=== PATIENT | female | born 1945 | race Caucasian/White ===

== ENCOUNTER → 2021-06-14 12:18 | Outpatient (CLI) | payer MEDICARE, OTHER, SELFPAY ==
--- NOTE | ~2021-06-14 | MM_ITS ---
EXAMINATION: MM screening florin BI w mike HISTORY: Screening mammogram TECHNIQUE: Craniocaudal and mediolateral oblique 3-D tomosynthesis images were obtained and synthetic 2-D images were generated. CAD analysis was submitted and interpreted. COMPARISON: 05/16/2019, 04/01/2018, 03/30/2017 bilateral digital screening mammogram examinations BREAST PARENCHYMAL COMPOSITION: There are scattered areas of fibroglandular density. FINDINGS: There is no evidence of suspicious mass, calcification, or architectural distortion to sugg est malignancy in either breast. There has been no suspicious interval change. IMPRESSION: 1. No mammographic evidence of malignancy. 2. Recommend routine screening mammography in one year. BI-RADS Category 1: Negative Reviewed, dictated and finalized at location A.
== END ==
PROVIDERS: PCP Internal Medicine; Visit Provider Obstetrics & Gynecology Gynecology
DX: Z12.31 Encounter for screening mammogram for malignant neoplasm of breast (principal)
CPT/HCPCS: 77063; 77067

== ENCOUNTER 2021-08-17 07:48 | Outpatient (CLI) | payer MEDICARE, OTHER, SELFPAY ==
--- NOTE | 2021-08-31 12:54 | WPDSLEEPSTUD ---
Sleep Study Date of Study: 08/17/21 <Kamille Ayala, DO - Last Filed: 08/31/21 14:29> Ordering Provider: Jose JaraMD <Kamille Ayala, DO - Last Filed: 08/31/21 14:29> Interpreting Physician: Kaimlle Ayala DO <Kamille Ayala, DO - Last Filed: 08/31/21 14:29> Sleep Study Type: Split Polysomnogram <Kamille Ayala DO - Last Filed: 08/31/21 14:29> Height: 1.6 m <Kamille Ayala DO - Last Filed: 08/31/21 14:29> Weight: 107.955 kg <Kamille Ayala DO - Last Filed: 08/31/21 14:29> Body Mass Index: 42.1 <Kamille Ayala DO - Last Filed: 08/31/21 14:29> Neck Circumference (inches): 14 <Kamille Ayala DO - Last Filed: 08/31/21 14:29> Young Harris: 10 <Kamille Ayala DO - Last Filed: 08/31/21 14:29> Reason for Sleep Study The patient has known ROBBIE but has not been using her CPAP. She does have daytime sleepiness that is affecting her daily activities. <Kamille Ayala, DO - Last Filed: 08/31/21 14:29> Sleep History The patient is a 76-year-old female with coronary artery disease and ROBBIE that has a split study ordered by her primary care physician due to daytime somnolence. The patient states that she stopped using the CPAP a while ago. The patient had a split study done on July 18, 2010 where she was titrated to CPAP of 4 cm H2O. She had a Pap titration on August 23, 2010 where she was titrated to CPAP 10 cm H2O. The patient states that she never awakens from sleep short of breath. She never awakens from sleep with GERD symptoms or coughing. She rarely snores and never loud enough to where others complain. She really has trouble sleeping when she was denies waking up gasping for breath throughout the night. She denies any heart palpitations or out tonight. She frequently falls asleep during the day and often when she does not want to. She rarely falls asleep while driving. He denies sleep paralysis, cataplexy and hypnagogic / hypnopompic hallucinations. The patient rarely has nightmares. She often has thoughts racing through her mind. She denies feeling sad or depressed and is rarely anxious. She denies kicking throughout the night. She denies crawling and aching feelings in her legs as well as leg pain throughout the night. She denies grinding her teeth throughout the night waking up with morning jaw pain. She denies pain bothered by pain during the day and being awakened by pain throughout the night. She denies feeling stiff in the morning when she wakes up. She frequently wakes up with sore achy muscles. The patient denies consuming any caffeinated beverages 2 hours prior to bedtime. She does not engage in any physical exercise before bedtime. She does not read or watch television prior to bedtime. She will take a short naps in the afternoon or evening and does feel refreshed afterwards. She denies tobacco, alcohol and recreational drug use. She does not drink any caffeinated beverages throughout the day. She currently goes to bed at 11:00 p.m. on both weekdays and weekends. She said it will take her 1 hour at the longus to fall asleep. She wakes up 3 times throughout the night either to urinae home or to take medicine for headache. It takes her about 15 minutes to fall back asleep. She typically gets 5-6 hours of sleep per night. She wakes up at 7:00 a.m. on both weekdays and weekends. She does not stay in bed after waking up in the morning. She currently lives with her . <Kamille Ayala DO - Last Filed: 08/31/21 14:29> [facility] Past Medical History Medical History: Medical History ROBBIE (obstructive sleep apnea) <Kamille Ayala DO - Last Filed: 08/31/21 14:29> Surgical History Surgical History: Surgical History (Updated 08/31/21 @ 13:12 by Kamille Ayala, DO) History of hysterectomy Hx of cholecy
[2021-08-31 13:04] VITALS: BMI 42.1
== END 2021-08-18 07:48 | disposition home or self-care (01) ==
LOC: ANHCSM 07:53
PROVIDERS: PCP Internal Medicine; Visit Provider Internal Medicine
DX: G47.33 Obstructive sleep apnea (adult) (pediatric) (principal)
CPT/HCPCS: 95811

== ENCOUNTER 2022-05-30 14:20 | Outpatient (CLI) | payer MEDICARE, OTHER, SELFPAY ==
--- NOTE | ~2022-05-30 | US_ITS ---
EXAMINATION:US venous doppler LE LT INDICATION:Left lower extremity edema TECHNIQUE: Multiple grayscale, color flow and Doppler images of the left lower extremity deep venous systems were obtained and reviewed. COMPARISON:No prior studies for comparison. FINDINGS: The common femoral, superficial femoral and popliteal veins demonstrate normal respiratory variation, augmentation and compressibility. Color flow is also seen within the posterior tibial, pe roneal, greater saphenous and profunda veins. IMPRESSION: 1: No lower extremity deep venous thrombosis. Reviewed, dictated and finalized at location A.
== END 2022-05-30 14:21 | disposition home or self-care (01) ==
PROVIDERS: PCP Internal Medicine; Visit Provider Internal Medicine
DX: R60.0 Localized edema (principal)
CPT/HCPCS: 93971

== ENCOUNTER 2022-08-31 09:02 | Outpatient (CLI) | payer MEDICARE, OTHER, SELFPAY ==
--- NOTE | ~2022-08-31 | DEXA_ITS ---
Bone Density Report Name: CATERINA RAMÍREZ Age: 77 Sex: Female Ethnicity: White Date of : 1945 Indication: postmenopausal; screening for osteoporosis; height loss; prior fracture; hysterectomy; Referring Provider: NICOLETTE, GERRY Study: Bone densitometry was performed. Exam Date: August 31, 2022 Accession number: [id number] Bone Density: Region BMD T-score Z-score Classification AP Spine(L1-L4) 1.113 0.6 3.2 Normal Femoral Neck (Left) 0.731 -1.1 1.2 Osteopenia Total Hip (Left) 0.796 -1.2 0.8 Osteopenia Femoral Neck (Right) 0.586 -2.4 -0.1 Osteopenia Total Hip (Right) 0.800 -1.2 0.8 Osteopenia Total Hip Mean 0.798 -1.2 0.8 Osteopenia World Health Organization criteria for BMD impression classify patients as: Normal (T-score at or above -1.0), Osteopenia (T-score between -1.0 and -2.5), or Osteoporosis (T-score at or below -2.5). 10-year Fracture Risk(1): Major Osteoporotic Fracture 21% Hip Fracture 5.7% Reported Risk Factors: [place] (), Neck BMD=0.586, BMI=43.9, previous fracture (1) FRAX(R) Version 3.08. Fracture probability calculated for an untreated patient. Fracture probability may be lower if the patient has received treatment. Clinical Information Provided by Patient: Has had a low trauma fracture Has used the following medications: Vitamin D, Calcium Has the following medical conditions: Hysterectomy Patient maximum height was 64 Menopause Age: 49 No regular weight bearing exercise Onset of menses at age 13 Number of children 3 Impression: The patient has low bone mass, based on the Right Femoral Neck T-score. The patient has an estimated ten-year risk of hip fracture of 5.7% and an estimated ten-year risk of major fracture of 21%, based on the WHO FRAX algorithm. The patient has risk factors, including: previous fracture. Discussion: BONE DENSITY IS LOW AT ONE OR MORE SKELETAL SITES. THE PATIENT'S BMD AND CLINICAL RISK FACTORS CONTRIBUTE TO THIS PATIENT'S HIGH RISK OF FRACTURE. This patient's lowest T-score is low at one or more skeletal sites. It meets the World Health Organization's (WHO) criteria for ?low bone mass? (T-score between -1.0 and -2.5). The patient's 10-year risk of hip fracture and 10 year risk of a major osteoporotic fracture as calculated by FRAX exceeds the threshold where pharmacological therapy is recommended by the National Osteoporosis Foundation (NOF). However, all treatment decisions require clinical judgment and consideration of individual patient factors, including patient preferences, comorbidities, previous drug use, risk factors not captured in the FRAX model (e.g., frailty, falls, vitamin D deficiency, increased bone turnover, interval significant decline in bone density) and possible under or overestimation of fract
--- NOTE | ~2022-08-31 | MM_ITS ---
EXAMINATION: MM screening florin BI w mike HISTORY: Screening TECHNIQUE: Craniocaudal and mediolateral oblique 3-D tomosynthesis images were obtained and synthetic 2-D images were generated. CAD analysis was submitted and interpreted. COMPARISON: Comparison to multiple prior studies sequentially, with oldest reviewed study dated 12/2015. BREAST PARENCHYMAL COMPOSITION: Breast composed of scattered areas of fibroglandular density FINDINGS: There is no evidence of suspicious mass, calcification, or architectural distortion to sugg est malignancy in either breast. There has been no suspicious interval change. IMPRESSION: 1. No mammographic evidence of malignancy. 2. Recommend routine screening mammography in one year. BI-RADS Category 1: Negative Reviewed, dictated and finalized at location A.
== END 2022-08-31 09:03 | disposition home or self-care (01) ==
LOC: ANHIMG 09:03
PROVIDERS: PCP Internal Medicine; Visit Provider Nurse Practitioner
DX: Z12.31 Encounter for screening mammogram for malignant neoplasm of breast (principal); Z78.0 Asymptomatic menopausal state; M85.851 Other specified disorders of bone density and structure, right thigh; M85.852 Other specified disorders of bone density and structure, left thigh
CPT/HCPCS: 77063; 77067; 77080

== ENCOUNTER 2023-06-04 03:56 | Day surgery (SDC) | payer MEDICARE, OTHER, SELFPAY ==
[2023-05-31 08:38] VITALS: BMI 43.1
[2023-06-04 10:41] VITALS: BP 131/67; PULSE 56; RESP 17; TEMP 36; O2SAT 98; BMI 42.8
--- NOTE | 2023-06-04 10:48 | WPDANESEPPF ---
Anes - Initial Pre Proc Eval Procedure: Operation Date: 06/04/23 13:15 Proposed Procedures p Esophagogastroduodenoscopy - Carlton Noguera MD Date/Time: 06/04/23 10:48 Surgeon: Carlton Noguera MD Pre Op Diagnosis: GERD Patient Data Age: 77 Gender: F Height: 1.57 m Weight: 106.2 kg Last Vital Signs Temp 96.8 F L 06/04/23 10:41 Pulse 56 L 06/04/23 10:41 Resp 17 06/04/23 10:41 BP 131/67 06/04/23 10:41 Pulse Ox 98 06/04/23 10:41 O2 Del Method Room Air 06/04/23 10:41 Allergies Allergy/AdvReac Type Severity Reaction Status Date / Time codeine Allergy Mild Hives Verified 06/04/23 10:39 Home Medications Medication Instructions Recorded Confirmed Type aspirin 81 mg tablet,delayed 81 mg PO DAILY 11/01/21 05/31/23 History release atorvastatin 20 mg tablet 20 mg PO DAILY 11/01/21 05/31/23 History calcium carbonate 600 mg calcium 600 mg PO DAILY 11/01/21 06/04/23 History (1,500 mg) tablet (Calcium) ergocalciferol (vitamin D2) 1,250 1,250 mcg PO MONTHLY 11/01/21 06/04/23 History mcg (50,000 unit) capsule metoprolol succinate 25 mg capsule 25 mg PO DAILY 11/01/21 06/04/23 History sprinkle, ext. release 24 hr milk thistle 175 mg tablet 175 mg PO BID 11/01/21 06/04/23 History multivitamin with iron (Daily 1 tablet PO DAILY 11/01/21 06/04/23 History Multiple Vitamins with Iron tablet) omeprazole 40 mg capsule,delayed 40 mg PO DAILY 11/01/21 06/04/23 History release furosemide 20 mg tablet 20 mg PO QAM 05/29/23 06/04/23 History oxybutynin chloride 5 mg tablet 5 mg PO DAILY 05/29/23 06/04/23 History Patient hx anesthesia problems: none Family hx anesthesia problems: none Results Review: All pre-operative results and documents have been reviewed as part of the pre-operative evaluation. [facility] Past Medical History Medical History Coronary artery disease GERD (gastroesophageal reflux disease) HLD (hyperlipidemia) HTN (hypertension) Hyperparathyroidism ROBBIE (obstructive sleep apnea) Surgical History Surgical History History of hysterectomy Hx of cholecystectomy Family History Family History Father Diabetes mellitus Mother Family history of multiple sclerosis Other Family history of congenital heart disease Family history of malignant neoplasm Social History Social History Social History: Caffeine-rarely Years smoked: 4 Smoking status: Former smoker Tobacco type: cigarettes Smoking end date: 11/19/1967 Alcohol intake: never Substance use: never Substance use type: does not use Lack of Transportation: No Lack of Food: Never True Current Housing: I Have Housing Concerned About Future Housing: No Difficulty Paying Gas/Electric Bills: No Difficulty Paying for Meds: No Currently Unemployed: No Education: High School Diploma/GED Difficulty w/ Childcare or Family Care: No Living arrangements: with family Spiritual care concerns: No Anes - Eval Final PreProcedure Day of Procedure 06/04/23 10:48 Patient weight: morbidly obese Heart: regular rate and rhythm Lungs: clear to auscultation Neurological: alert and oriented Last oral intake: >/= 8 hours ASA classification: III Emergent: no Anesthetic plan: proceed Anesthesia type and monitoring: general GIVS and standard monitoring Results Review: All pre-operative results and documents have been reviewed as part of the pre-operative evaluation. Informed Consent: The patient's anesthetic plan and its attendant risks and benefits were discussed with the patient/family/POA. Questions were solicited and answers provided to the satisfaction of the patient/family/POA.
[2023-06-04] MEDS: LACTATED RINGERS 1,000 ML 150 ML IV CONT (10:49)
--- NOTE | 2023-06-04 11:12 | PM.HPGS ---
History of Present Illness History of Present Illness Consent: Risks, benefits, and alternatives have been discussed and questions answered. Patient agrees to proceed with procedure. Chief complaint: GERD Narrative: Gill Kim is a 77 year old female Who is chronically treated with omeprazole for acid reflux and now is been bothered by a sore throat for the past month. It is fairly constant and it is uncomfortable for her to swallow. She denies dysphagia for solid food. There has been no weight loss. She denies abdominal pain. She recently saw an ENT physician who did not find anything significant. He had recommended that she have endoscopy. Review of Systems Review of Systems: All systems reviewed & are unremarkable except as noted in HPI and below PMFSH Past Medical History Medical History (Updated 06/04/23 @ 11:13 by Carlton Noguera MD) Coronary artery disease GERD (gastroesophageal reflux disease) HLD (hyperlipidemia) HTN (hypertension) Hyperparathyroidism ROBBIE (obstructive sleep apnea) Surgical History Surgical History History of hysterectomy Hx of cholecystectomy Family History Family History Father Diabetes mellitus Mother Family history of multiple sclerosis Other Family history of congenital heart disease Family history of malignant neoplasm Social History Social History Social History: Caffeine-rarely Years smoked: 4 Smoking status: Former smoker Tobacco type: cigarettes Smoking end date: 11/19/1967 Alcohol intake: never Substance use: never Substance use type: does not use Lack of Transportation: No Lack of Food: Never True Current Housing: I Have Housing Concerned About Future Housing: No Difficulty Paying Gas/Electric Bills: No Difficulty Paying for Meds: No Currently Unemployed: No Education: High School Diploma/GED Difficulty w/ Childcare or Family Care: No Living arrangements: with family Spiritual care concerns: No Meds Home Medications and Allergies Home Medications Medication Instructions Recorded Confirmed Type aspirin 81 mg tablet,delayed 81 mg PO DAILY 11/01/21 05/31/23 History release atorvastatin 20 mg tablet 20 mg PO DAILY 11/01/21 05/31/23 History calcium carbonate 600 mg calcium 600 mg PO DAILY 11/01/21 06/04/23 History (1,500 mg) tablet (Calcium) ergocalciferol (vitamin D2) 1,250 1,250 mcg PO MONTHLY 11/01/21 06/04/23 History mcg (50,000 unit) capsule metoprolol succinate 25 mg capsule 25 mg PO DAILY 11/01/21 06/04/23 History sprinkle, ext. release 24 hr milk thistle 175 mg tablet 175 mg PO BID 11/01/21 06/04/23 History multivitamin with iron (Daily 1 tablet PO DAILY 11/01/21 06/04/23 History Multiple Vitamins with Iron tablet) omeprazole 40 mg capsule,delayed 40 mg PO DAILY 11/01/21 06/04/23 History release furosemide 20 mg tablet 20 mg PO QAM 05/29/23 06/04/23 History oxybutynin chloride 5 mg tablet 5 mg PO DAILY 05/29/23 06/04/23 History Allergies Allergy/AdvReac Type Severity Reaction Status Date / Time codeine Allergy Mild Hives Verified 06/04/23 10:39 Vital Signs Vital Signs - 24 hr 06/04/23 10:41 Temperature 36.0 C L Pulse Rate 56 L Respiratory Rate 17 Blood Pressure 131/67 Pulse Oximetry 98 Oxygen Delivery Room Air Exam Const: General: alert Orientation/consciousness: patient oriented x3 Resp: Auscultation: clear to auscultation bilaterally Cardio: Rhythm: regular rhythm GI: GI Palp: Yes Soft to palpation and No Tenderness to palpation present (GI) Neuro: General: patient oriented x3 Assessment and Plan Assessment and plan (1) GERD (gastroesophageal reflux disease): Code(s): K21.9 - Gastro-esophageal reflux disease without esophagitis Status: Acute Assessment and Plan:
[2023-06-04 11:35] VITALS: BP 112/57; PULSE 56; RESP 22; O2SAT 95
[2023-06-04 11:45] VITALS: BP 98/63; PULSE 54; RESP 21; O2SAT 99
[2023-06-04 11:55] VITALS: BP 134/71; PULSE 50; RESP 20; O2SAT 98
== END 2023-06-04 12:03 | disposition home or self-care (01) ==
PROVIDERS: PCP Internal Medicine; Visit Provider Internal Medicine Gastroenterology
PROC: 0DJ08ZZ Inspection of Upper Intestinal Tract, Via Natural or Artificial Opening Endoscopic (ICD-10-PCS; CPT 43235; principal; 2023-06-04 13:15)
DX: K21.9 Gastro-esophageal reflux disease without esophagitis (principal); K31.7 Polyp of stomach and duodenum; I25.10 Atherosclerotic heart disease of native coronary artery without angina pectoris; E78.5 Hyperlipidemia, unspecified; I10 Essential (primary) hypertension; Z87.891 Personal history of nicotine dependence
CPT/HCPCS: 43239; 88305; J2704; J7120

== ENCOUNTER 2023-09-26 11:00 | Emergency (ER) | payer MEDICARE, OTHER, SELFPAY ==
--- NOTE | ~2023-09-26 | XR_ITS ---
EXAMINATION: XR chest 1V portable DATE: 09/26/2023 17:55 INDICATION: Near syncope. TECHNIQUE: A single frontal view of the chest was obtained. COMPARISON: None. FINDINGS: There is no pneumonia, pleural effusion, or pneumothorax. The heart size is normal. IMPRESSION: 1. No acute cardiopulmonary disease. Reviewed, dictated and finalized at location E. [employer]ION [employer]ATE
[2023-09-26 11:41] VITALS: BP 133/60; PULSE 62; RESP 16; TEMP 36.6; O2SAT 97
--- NOTE | 2023-09-26 11:47 | ECG_ITS ---
Measurements Intervals [place] Rate: 60 P: 6 [place]: 206 QRS: -18 QRSD: 107 T: 1 QT: 413 QTc: 416 Interpretive Statements SINUS RHYTHM BORDERLINE AV CONDUCTION DELAY INCOMPLETE RIGHT BUNDLE BRANCH BLOCK DELAYED PRECORDIAL R/S TRANSITION LOW QRS VOLTAGE IN PRECORDIAL LEADS BORDERLINE T WAVE ABNORMALITY- ANTEROLAT/INF LEADS BASELINE ARTIFACT- II, III, AVR, AVL, AVF, V6 BORDERLINE ECG NO PREVIOUS ECG AVAILABLE FOR COMPARISON Electronically Signed On 09-26-2023 11:58:55 CEMENT MIXER by William Hilton D.O.
[2023-09-26 13:09] LABS: Basophils Percent Auto 0.3 % (0.2-1.2); Eosinophils Percent Auto 0.3 % (0-4.4); Hematocrit 41.9 % (37.0-47.0); Hemoglobin 13.3 g/dL (12.0-15.0); Immature Granulocyte Absolute 0.08 K/mm3 (0.00-0.031); Immature Granulocyte Percent A 0.8 % (0-0.5); Lymphocytes Absolute Auto 0.84 K/mm3 (0.9-3.2); Lymphocytes Percent Auto 8.5 % (18.3-44.2); Mean Corpuscular HGB Conc 31.7 g/dl (32-36); Mean Corpuscular Hemoglobin 28.1 pg (26-34); Mean Corpuscular Volume 88.6 fl (80-100); Mean Platelet Volume 10.3 fl (7.4-10.4); Monocytes Absolute Auto 0.5 K/mm3 (0.1-0.6); Monocytes Percent Auto 5.2 % (2.6-8.5); Neutrophils Absolute Auto 8.4 K/mm3 (1.3-6.7); Neutrophils Percent Auto 84.9 % (45.5-73.1); Platelet Count Result 201 k/mm3 (150-375); Red Blood Count 4.73 M/mm3 (4.2-5.4); Red Cell Distribution Width 16.9 % (11.5-14.5); White Blood Count 9.9 K/mm3 (4.5-10.0)
[2023-09-26 13:47] LABS: Appearance Urine Clear (Clear); Bacteria Urine None Seen /hpf; Bilirubin Urine Negative (Negative); Blood Urine Negative (Negative); Color Urine Yellow (Yellow); Glucose Urine UA Negative (Negative); Ketones Urine Negative (Negative); Leukocyte Esterase Ur 1+ LEU/UL (Negative); Need Manual Microscopic Reviewed; Nitrate Urine Negative (Negative); Non Pathogenic Casts 0-2; Protein Urine Negative (Negative); RBC Urine 0-2 /hpf (0-2); Specific Grav Ur 1.004 (1.001-1.035); Squamous Epithelial Cell Urine None seen /hpf (Few); Urobilinogen Urine 0.2 mg/dL (<2.0); WBC Urine 0-5 /hpf
[2023-09-26 14:00] LABS: Add Urine Microscopic? YES
[2023-09-26 14:19] LABS: Alanine Aminotransferase 19 U/L (6-35); Albumin Level 3.6 g/dL (3.5-5.1); Alkaline Phosphatase 69 U/L (38-126); Anion Gap 5 mmol/L (8-16); Aspartate Amino Transferase 25 U/L (14-36); Bilirubin,Total 0.7 mg/dL (0.2-1.3); Blood Urea Nitrogen 13 mg/dL (7-17); Calcium 8.4 mg/dL (8.4-10.2); Carbon Dioxide 29 mmol/L (22-30); Chloride 99 mmol/L (98-107); Estimated CRCL calculation 57 ml/min; Estimated Glomerular Filt Rate > 60; Glucose 96 mg/dL (65-110); Potassium 4.2 mmol/L (3.4-5.0); Sodium 133 mmol/L (137-145)
[2023-09-26 14:30] LABS: Troponin I < 0.012 ng/mL (0.000-0.034)
[2023-09-26 14:53] VITALS: BP 152/55; PULSE 60; RESP 17; O2SAT 98
[2023-09-26 15:14] VITALS: BP 146/58; PULSE 81
[2023-09-26 15:15] VITALS: BP 149/67; PULSE 91
[2023-09-26 15:17] VITALS: BP 130/78; PULSE 91
[2023-09-26] MEDS: SODIUM CHLORIDE 0.9% IV 1,000 ML 999 ML IV CONT (16:49)
[2023-09-26 17:00] VITALS: BP 123/57; PULSE 68; RESP 15; O2SAT 100
--- NOTE | 2023-09-26 17:20 | ED.GENADULT ---
HPI - General Adult General Chief complaint: Syncope Stated complaint: syncope Time Seen by Provider: 09/26/23 12:36 History of Present Illness HPI narrative: Patient is a 78-year-old female who presents ER with reports of near syncope. Patient just finished a stress test and was walking out when she lost her balance and went to the ground. Initially she reports she was lightheaded but she also reports that her shoe got stuck to the ground causing her to lose her balance. She reports she has been having nausea and feeling off for about 3 weeks. She has had poor appetite. She has not been vomiting. No racing of the heart or chest pain or dyspnea she has had no loss of consciousness prior to this. She reports that she has had some increased stress caring for her who has some cardiac issues. Related Data Home Medications Medication Instructions Recorded Confirmed aspirin 81 mg tablet,delayed 81 mg PO DAILY 11/01/21 05/31/23 release atorvastatin 20 mg tablet 20 mg PO DAILY 11/01/21 05/31/23 calcium carbonate 600 mg calcium 600 mg PO DAILY 11/01/21 06/04/23 (1,500 mg) tablet (Calcium) ergocalciferol (vitamin D2) 1,250 1,250 mcg PO MONTHLY 11/01/21 06/04/23 mcg (50,000 unit) capsule metoprolol succinate 25 mg capsule 25 mg PO DAILY 11/01/21 06/04/23 sprinkle, ext. release 24 hr milk thistle 175 mg tablet 175 mg PO BID 11/01/21 06/04/23 multivitamin with iron (Daily 1 tablet PO DAILY 11/01/21 06/04/23 Multiple Vitamins with Iron tablet) furosemide 20 mg tablet 20 mg PO QAM 05/29/23 06/04/23 oxybutynin chloride 5 mg tablet 5 mg PO DAILY 05/29/23 06/04/23 Allergies Allergy/AdvReac Type Severity Reaction Status Date / Time codeine Allergy Mild Hives Verified 06/04/23 10:39 Review of Systems Review of Systems: All systems reviewed & are unremarkable except as noted in HPI and below Constitutional: Constitutional: Denies chills, Denies fatigue and Denies fever(s) ENT: Denies nasal congestion and Denies sore throat Cardiovascular: Cardiovascular: Denies chest pain, Denies rapid heart rate and Denies radiating jaw, neck or arm pain Respiratory: Respiratory: Denies cough, Denies dyspnea and Denies wheezing Gastrointestinal: Gastrointestinal: Denies abdominal pain, Reports nausea and Denies vomiting Genitourinary: Genitourinary: Reports no additional female genitourinary complaints Musculoskeletal: Musculoskeletal: Reports no additional musculoskeletal complaints Neurologic: Reports dizziness, Denies syncope, Denies headache(s), Denies focal weakness and Denies numbness PMFSH Past Medical History Medical History Coronary artery disease GERD (gastroesophageal reflux disease) HLD (hyperlipidemia) HTN (hypertension) Hyperparathyroidism ROBBIE (obstructive sleep apnea) Surgical History Surgical History History of hysterectomy Hx of cholecystectomy Family History Family History Father Diabetes mellitus Mother Family history of multiple sclerosis Other Family history of congenital heart disease Family history of malignant neoplasm Social History Social History (Updated 07/04/23 @ 14:30 by Ania Mendoza Corry) Social History: Caffeine-rarely Smoking packs per day: 0.5 Smoking cigarettes per day: 10.0 Years smoked: 4 Smoking pack-years: 2.00 Smoking status: Former smoker Tobacco type: cigarettes Smoking end date: 11/19/1967 Alcohol intake: never Substance use: never Substance use type: does not use Lack of Transportation: No Lack of Food: Never True Current Housing: I Have Housing Concerned About Future Housing: No Difficulty Paying Gas/Electric Bills: No Difficulty Paying for Meds: No Currently Unemployed: No Education: High School Diploma/GED Difficulty w/ Childcare or Family Car
[2023-09-26 18:06] LABS: Troponin I < 0.012 ng/mL (0.000-0.034)
== END 2023-09-26 18:56 | disposition home or self-care (01) ==
PROVIDERS: Emergency Provider Emergency Medicine; PCP Internal Medicine
DX: E86.0 Dehydration (principal); R42 Dizziness and giddiness; H61.21 Impacted cerumen, right ear; I25.10 Atherosclerotic heart disease of native coronary artery without angina pectoris; E78.5 Hyperlipidemia, unspecified; E21.3 Hyperparathyroidism, unspecified; I10 Essential (primary) hypertension; K21.9 Gastro-esophageal reflux disease without esophagitis; G47.33 Obstructive sleep apnea (adult) (pediatric); Z87.891 Personal history of nicotine dependence; Z90.710 Acquired absence of both cervix and uterus; Z90.49 Acquired absence of other specified parts of digestive tract; Z79.82 Long term (current) use of aspirin; I45.10 Unspecified right bundle-branch block; R94.31 Abnormal electrocardiogram [ECG] [EKG]
CPT/HCPCS: 36415; 69210; 71045; 80053; 81001; 84484; 85025; 93005; 96360; 96361; 99284; J7030

== ENCOUNTER 2023-10-01 09:09 | Outpatient (CLI) | payer MEDICARE, OTHER, SELFPAY ==
--- NOTE | ~2023-10-01 | US_ITS ---
US_VDOPREFBI_US DATE: 10/01/2023 11:23 INDICATION: Localized edema TECHNIQUE: Real-time imaging and color flow imaging and Doppler analysis of the veins of the lower ex tremities COMPARISON: None FINDINGS: There is patency and normal compressibility of the right common femoral, femoral, popliteal, posterio r tibial and peroneal veins. There is patency and normal compressibility of the left common femoral, femoral and popliteal veins; left posterior tibial peroneal veins were not well-demonstrated. The greater saphenous veins are patent. Right greater saphenous vein diameter: 0.6 cm proximally, 0.4 cm mid and 0.4 cm distally; 5+ seconds reflux duration at the distal right greater saphenous vein Right lesser saphenous vein: 0.6 cm diameter proximally, 0.3 cm distally, no reflux Left greater saphenous vein: 0.6 cm proximal diameter, 0.3 cm mid diameter, 0.4 cm distal vein diamet er; no reflux Left lesser saphenous vein: 0.4 cm proximal and distal diameter; 5+ seconds reflux duration distally IMPRESSION: No evidence of deep venous thrombosis of the lower extremities No evidence of thrombosis of greater or lesser veins of the lower extremities Reflux demonstrated in distal right greater saphenous and distal left lesser saphenous veins Reviewed, dictated and finalized at Location A. Reviewed, dictated and finalized at location L. L HEMMER IMPRESSION: No evidence of deep venous thrombosis of the lower extremities No evidence of thrombosis of greater or lesser veins of the lower extremities Reflux demonstrated in distal right greater saphenous and distal left lesser sa phenous veins
== END 2023-10-01 09:10 | disposition home or self-care (01) ==
PROVIDERS: PCP Internal Medicine; Visit Provider Internal Medicine
DX: R60.0 Localized edema (principal)
CPT/HCPCS: 93970

== ENCOUNTER → 2023-10-17 13:14 | Outpatient (CLI) | payer MEDICARE, OTHER, SELFPAY ==
--- NOTE | ~2023-10-17 | CT_ITS ---
EXAMINATION: CT abdomen w con DATE: 10/17/2023 13:57 INDICATION: Epigastric abdominal pain. Nausea. TECHNIQUE: Computed tomography (CT) of the abdomen was performed with 100 mL Omnipaque 350 intravenou s contrast. Automated exposure control and iterative reconstruction technique were employed. The dose -length product was 694.39 mGy-cm. COMPARISON: CT abdomen and pelvis 05/08/2018 FINDINGS: The visualized portions of the lung bases demonstrate mild atelectasis. No pleural effusion . The heart size is normal. No pericardial effusion. There is a small sliding hiatal hernia. There ar e cysts in the liver measuring up to 3.1 cm. There are changes of cholecystectomy. The spleen and danielle creas are normal. There are masses in the adrenal glands measuring soft tissue attenuation measuring up to 17 mm on the left without change, likely adenomas. There are cysts in the kidneys measuring up to 10 mm on the left. There are no dilated loops of bowel. There is a supraumbilical ventral hernia c ontaining fat. There is severe thoracic and lumbar spondylosis. IMPRESSION: 1. Small sliding hiatal hernia. Reviewed, dictated and finalized at location A. [employer] OFFICER
[2023-10-17 13:39] LABS: Estimated Glomerular Filt Rate > 60
== END ==
PROVIDERS: PCP Internal Medicine Gastroenterology; Visit Provider Nurse Practitioner
DX: R68.81 Early satiety (principal); R11.0 Nausea; R10.13 Epigastric pain; K44.9 Diaphragmatic hernia without obstruction or gangrene
CPT/HCPCS: 74160; Q9967

== ENCOUNTER 2023-11-21 08:58 | Outpatient (CLI) | payer MEDICARE, OTHER, SELFPAY ==
--- NOTE | ~2023-11-21 | US_ITS ---
EXAMINATION: US venous doppler [facility] DATE: 11/21/2023 09:38 INDICATION: Localized left lower limb swelling TECHNIQUE: Grayscale ultrasound images without and with compression and Doppler ultrasound images of the left lower extremity veins were obtained. COMPARISON: None. FINDINGS: The visualized portions of left common femoral vein, profunda (deep) femoral vein, femoral vein, popl iteal vein, peroneal veins, posterior tibial veins, gastrocnemius vein, lesser saphenous vein and gre ater saphenous vein outflow are patent. IMPRESSION: 1. No deep venous thrombosis in the left lower limb. Reviewed, dictated and finalized at location A. PHERE COMMERCE DEVELOPER
== END 2023-11-21 08:59 | disposition home or self-care (01) ==
PROVIDERS: PCP Internal Medicine; Visit Provider Internal Medicine
DX: R60.0 Localized edema (principal)
CPT/HCPCS: 93971

== ENCOUNTER 2023-12-27 12:44 | Outpatient (CLI) | payer MEDICARE, OTHER, SELFPAY ==
[2023-12-27 13:31] LABS: Alanine Aminotransferase 18 U/L (6-35); Albumin Level 3.9 g/dL (3.5-5.1); Alkaline Phosphatase 85 U/L (38-126); Aspartate Amino Transferase 25 U/L (14-36); Bilirubin,Total 1.1 mg/dL (0.2-1.3)
[2023-12-27 14:14] LABS: Thyroid Stimulating Hormone Reflex 0.995 uIU/mL (0.465-4.68)
== END 2023-12-27 12:45 | disposition home or self-care (01) ==
PROVIDERS: PCP Internal Medicine; Visit Provider Nurse Practitioner
DX: K76.89 Other specified diseases of liver (principal)
CPT/HCPCS: 36415; 80076; 84443

== ENCOUNTER 2024-01-01 09:40 | Outpatient (CLI) | payer MEDICARE, OTHER, SELFPAY ==
--- NOTE | ~2024-01-01 | MM_ITS ---
EXAMINATION: MM screening [facility] BI w mike HISTORY: Screening mammogram TECHNIQUE: Craniocaudal and mediolateral oblique 3-D tomosynthesis images were obtained and synthetic 2-D images were generated. CAD analysis was submitted and interpreted. COMPARISON: 08/31/2022, 06/09/2021, 05/08/2019 BREAST PARENCHYMAL COMPOSITION: There are scattered areas of fibroglandular density. FINDINGS: No suspicious mass, calcification, or architectural distortion are identified in either cammy ast to suggest malignancy. There has been no suspicious interval change. IMPRESSION: 1. No mammographic evidence of malignancy. 2. Recommend routine screening mammography in one year. BI-RADS Category 1: Negative Reviewed, dictated and finalized at location A. OW UP CLERK
== END 2024-01-01 09:41 | disposition home or self-care (01) ==
PROVIDERS: PCP Internal Medicine; Visit Provider Nurse Practitioner
DX: Z12.31 Encounter for screening mammogram for malignant neoplasm of breast (principal)
CPT/HCPCS: 77063; 77067

== ENCOUNTER → 2024-01-03 10:14 | Outpatient (CLI) | payer MEDICARE, OTHER, SELFPAY ==
--- NOTE | ~2024-01-03 | CT_ITS ---
EXAMINATION: CT sinus wo con DATE: 01/03/2024 10:33 INDICATION: Chronic sinusitis for years TECHNIQUE: Computed tomography (CT) of the paranasal sinuses was performed without contrast. Iterativ e reconstruction technique was employed. Exam dose: 400.44 mGy-cm total exam DLP. COMPARISON: None FINDINGS: Prominent rightward deviation of the nasal septum. Prominent intralamellar cell of right middle nasal turbinate. There is asymmetric prominent soft tiss ue swelling of the left middle and inferior nasal turbinates. There is nearly complete opacification of the left middle meatus and complete opacification of the left ostiomeatal complex.. There is severe mucoperiosteal thickening of the left maxillary sinus, which is almost completely opa cified. There is mild mucoperiosteal thickening of the left frontal sinus near the frontoethmoid area and ext ensive opacification of left ethmoid air cells. Very small fluid level in the right maxillary sinus. The right frontal sinus, ethmoid air cells and l eft and right sphenoid sinuses are well-developed and aerated. The right ostiomeatal complex is patent. The mastoid air cells are well pneumatized bilaterally and well aerated. IMPRESSION: Prominent rightward deviation of nasal septum Asymmetric soft tissue swelling of left nasal turbinates Prominent intralamellar cell of right middle nasal turbinate Complete opacification of left ostiomeatal complex; right ostiomeatal complex is patent Minimal left frontal, prominent left ethmoid and severe left maxillary sinusitis. Very small fluid le mega of right maxillary sinus Reviewed, dictated and finalized at Location A. Reviewed, dictated and finalized at location L. BREEDER IMPRESSION: Prominent rightward deviation of nasal septum Asymmetric soft tissue swelling of left nasal turbinates Prominent intralamellar cell of right middle nasal turbinate Complete opacification of left ostiomeatal complex; right ostiomeatal complex i s patent Minimal left frontal, prominent left ethmoid and severe left maxillary sinusiti s. Very small fluid level of right maxillary sinus
== END ==
PROVIDERS: PCP Internal Medicine; Visit Provider Otolaryngology
DX: J32.4 Chronic pansinusitis (principal); J34.2 Deviated nasal septum; J34.89 Other specified disorders of nose and nasal sinuses
CPT/HCPCS: 70486

== ENCOUNTER 2024-01-31 10:29 | Outpatient (CLI) | payer MEDICARE, OTHER, SELFPAY ==
[2024-01-31 11:04] LABS: Anion Gap 4 mmol/L (8-16); Blood Urea Nitrogen 12 mg/dL (7-17); Calcium 8.8 mg/dL (8.4-10.2); Carbon Dioxide 27 mmol/L (22-30); Chloride 100 mmol/L (98-107); Estimated Glomerular Filt Rate > 60; Glucose 94 mg/dL (65-110); Potassium 4.4 mmol/L (3.4-5.0); Sodium 131 mmol/L (137-145)
== END 2024-01-31 10:30 | disposition home or self-care (01) ==
LOC: ANHSURGERY 10:36
PROVIDERS: Anesthesiology; PCP Internal Medicine; Visit Provider Otolaryngology
DX: Z01.818 Encounter for other preprocedural examination (principal); I10 Essential (primary) hypertension
CPT/HCPCS: 36415; 80048

== ENCOUNTER 2024-02-05 01:08 | Day surgery (SDC) | payer MEDICARE, OTHER, SELFPAY ==
--- NOTE | 2024-01-25 12:34 | PC.NURSE ---
Report to the Outpatient Waiting Room, entrance under the green pavilion located off [facility], at time __1045 on date __02/05/24 . Planned Procedure Time: _1245 . Time changes happen often and if your time is changed the preop area will call you the afternoon before. - You and your visitor will be asked to self-screen and do not enter if you have any COVID symptoms. - A mask is optional within the hospital at this time. Patients may have clear liquids (water, carbonated beverages, clear teas, apple juice) until 3 hours prior to surgery(9:45 AM ) with a maximum of 20 ounces. - No food from midnight until time of surgery - Infants may have breast milk until 4 hours before surgery, formula 6 hours prior to surgery. - Children will be allowed to drink immediately following surgery. If applicable, please bring a bottle or sippy cup to assist with drinking. Juice, water, soda, and popsicles are readily available. For infants on formula, please bring formula the day of surgery. Pacifiers are allowed. Take the following medications with a SIP of water the morning of surgery: ____METOPROLOL,RANOLAZINE DO NOT STOP ANY OF YOUR OTHER PRESCRIPTION MEDICATIONS PRIOR TO SURGERY ?EXCEPT THE FOLLOWING Medications to discontinue per physician ____ALL VITAMINS AND SUPPLEMENTS 3 DAYS PRE OP.LAST DOSE 02/01/24. ASPIRIN PER CARLOS Please no make-up, nail tongan, hairspray, perfume, deodorant, or body powder the day of surgery. No jewelry (including any body piercings) or valuables the day of surgery, leave them at home. Please take a shower or bath the night before, or the morning of, surgery with an antibacterial soap. Wear comfortable, loose fitting clothing. Children are encouraged to wear pajamas. - Jewelry must be removed prior to entering the operating room. Rings and piercings that are not removed may be cut off. - The hospital will not accept responsibility for valuables. - Please leave all valuables, including medications, at home the day of surgery. If you are going home after surgery, a licensed driver education instructor must drive you home. - NO public transportation without another adult if you receive anesthesia. - We recommend that an adult stay with you for 24 hours following discharge. - We also recommend that you do not drive, make important decision, drink alcoholic beverages, or take any drugs that were not prescribed by your health care provider for at least 24 hours after your discharge time. Follow any additional instructions given to you from your surgeon. If you or anyone in your household have experienced Covid symptoms in the past week, please notify your surgeon or the nurse liaison at the phone number below for possible testing. Telephone instructions given to ___PATIENT and asked if any additional questions and then verbalized understanding. Patient advised to call surgeon office or pre surgery nurse liaison [phone] if any additional questions.
[2024-01-25 12:44] VITALS: BMI 37.8
--- NOTE | 2024-02-04 17:19 | PM.IMHP ---
H&P: HPI History of Present Illness Date/Time: 02/04/24 17:19 Chief Complaint: Recurrent sinusitis chronic sinusitis Narrative: planned procedure Review of Systems Review of Systems: All systems reviewed & are unremarkable except as noted in HPI and below [facility] Past Medical History Medical History Belching Constipation Coronary artery disease Early satiety Epigastric pain Fatty liver GERD (gastroesophageal reflux disease) HLD (hyperlipidemia) HTN (hypertension) Hyperparathyroidism Hyperplastic polyp of stomach Liver cyst Liver lesion Nausea Nonerosive esophageal reflux disease ROBBIE (obstructive sleep apnea) Ventral hernia Surgical History Surgical History History of hysterectomy Hx of cholecystectomy Family History Family History Father Diabetes mellitus Mother Family history of multiple sclerosis Other Family history of congenital heart disease Family history of malignant neoplasm Social History Social History Social History: Caffeine-rarely Smoking packs per day: 0.5 Smoking cigarettes per day: 10.0 Years smoked: 4 Smoking pack-years: 2.00 Smoking status: Former smoker Tobacco type: cigarettes Smoking end date: 11/19/67 Alcohol intake: never Substance use: never Substance use type: does not use Lack of Transportation: No Lack of Food: Never True Current Housing: I Have Housing Concerned About Future Housing: No Difficulty Paying Gas/Electric Bills: No Difficulty Paying for Meds: No Currently Unemployed: No Education: High School Diploma/GED Difficulty w/ Childcare or Family Care: No Living arrangements: with family Spiritual care concerns: No Meds Home Medications and Allergies Home Medications Medication Instructions Recorded Confirmed Type aspirin 81 mg tablet,delayed 81 mg PO HS 11/01/21 01/25/24 History release atorvastatin 20 mg tablet 20 mg PO HS 11/01/21 01/25/24 History calcium carbonate 600 mg calcium 600 mg PO DAILY 11/01/21 01/25/24 History (1,500 mg) tablet (Calcium) milk thistle 175 mg tablet 175 mg PO DAILY 11/01/21 01/25/24 History multivitamin with iron (Daily 1 tablet PO DAILY 11/01/21 01/25/24 History Multiple Vitamins with Iron tablet) furosemide 20 mg tablet 20 mg PO [facility] 05/29/23 01/25/24 History oxybutynin chloride 5 mg tablet 5 mg PO DAILY 05/29/23 01/25/24 History metoprolol succinate 25 mg capsule 25 mg PO BID 10/31/23 01/25/24 History sprinkle, ext. release 24 hr omeprazole 40 mg capsule,delayed 40 mg PO DAILY #90 caps 12/27/23 01/25/24 Rx release cholecalciferol (vitamin D3) 25 25 mcg PO DAILY 01/25/24 01/25/24 History mcg (1,000 unit) tablet ranolazine 500 mg tablet,extended 500 mg PO BID 01/25/24 01/25/24 History release,12 hr prednisone 10 mg tablet 10 mg PO .Daily 6 days #6 tabs 01/30/24 01/30/24 Rx Allergies Allergy/AdvReac Type Severity Reaction Status Date / Time codeine Allergy Mild Nausea Verified 01/25/24 12:16 Exam Narrative: septal deviation chronic sinusitis Assessment and Plan Assessment and plan (1) PND (post-nasal drip): Code(s): R09.82 - Postnasal drip Status: Acute Assessment and Plan: plan OR image guided endoscopic left-sided maxillary antrostomy total ethmoidectomy frontal sinusotomy possible septoplasty on likely. Risks discussed bleeding infection damage to surrounding structures CSF leak brain brain damage change in vision total blindness need for further procedures failure resolve symptoms damage to any structure of the clavicle by myself postoperative bleeding time off work time off school inherent risks of narcotic use near risk medication use damage any structures induction and remains anesthesia incl
[2024-02-05] VITALS (7 sets, daily range): BP systolic 148–167; BP diastolic 67–113; PULSE 55–75; RESP 12–20; TEMP 36.3–36.6; O2SAT 94–100
--- NOTE | 2024-02-05 07:17 | WPDHPUPDATE1 ---
History and Physical Update Update Date/Time: 02/05/24 07:17 History and Physical has been reviewed, including an updated exam of the patient. There are NO changes in the patient's condition. Risks, benefits, and alternatives have been discussed and questions answered. Patient agrees to proceed with procedure.
[2024-02-05] MEDS: ACETAMINOPHEN 500 MG TABLET 1000 MG PO (12:07)
[2024-02-05] MEDS: LACTATED RINGERS 1,000 ML 30 ML IV CONT ×2 (12:15→14:58)
--- NOTE | 2024-02-05 12:21 | WPDANESEPPF ---
Anes - Initial Pre Proc Eval Procedure: Operation Date: 02/05/24 13:15 Proposed Procedures p Image Guided Endoscopic Left Sided Maxillary Antrostomy, Left Total Ethmoidectomy, Left Frontal Sinusotomy - Rex Lara MD Date/Time: 02/05/24 12:21 Surgeon: Rex Lara MD Pre Op Diagnosis: chronic sinusitis Patient Data Age: 78 Gender: F Height: 1.63 m Weight: 99.8 kg Allergies Allergy/AdvReac Type Severity Reaction Status Date / Time codeine AdvReac Mild Nausea Verified 02/05/24 11:47 Home Medications Medication Instructions Recorded Confirmed Type aspirin 81 mg tablet,delayed 81 mg PO HS 11/01/21 02/05/24 History release atorvastatin 20 mg tablet 20 mg PO HS 11/01/21 02/05/24 History calcium carbonate 600 mg calcium 600 mg PO DAILY 11/01/21 02/05/24 History (1,500 mg) tablet (Calcium) milk thistle 175 mg tablet 175 mg PO DAILY 11/01/21 02/05/24 History multivitamin with iron (Daily 1 tablet PO DAILY 11/01/21 02/05/24 History Multiple Vitamins with Iron tablet) furosemide 20 mg tablet 20 mg PO QAM 05/29/23 02/05/24 History oxybutynin chloride 5 mg tablet 5 mg PO DAILY 05/29/23 02/05/24 History metoprolol succinate 25 mg capsule 25 mg PO BID 10/31/23 02/05/24 History sprinkle, ext. release 24 hr omeprazole 40 mg capsule,delayed 40 mg PO DAILY #90 caps 12/27/23 02/05/24 Rx release cholecalciferol (vitamin D3) 25 25 mcg PO DAILY 01/25/24 02/05/24 History mcg (1,000 unit) tablet ranolazine 500 mg tablet,extended 500 mg PO BID 01/25/24 02/05/24 History release,12 hr prednisone 10 mg tablet 10 mg PO .Daily 6 days #6 tabs 01/30/24 01/30/24 Rx Patient hx anesthesia problems: none Family hx anesthesia problems: none Results Review: All pre-operative results and documents have been reviewed as part of the pre-operative evaluation. [facility] Past Medical History Medical History Belching Constipation Coronary artery disease Early satiety Epigastric pain Fatty liver GERD (gastroesophageal reflux disease) HLD (hyperlipidemia) HTN (hypertension) Hyperparathyroidism Hyperplastic polyp of stomach Liver cyst Liver lesion Nausea Nonerosive esophageal reflux disease ROBBIE (obstructive sleep apnea) Ventral hernia Surgical History Surgical History History of hysterectomy Hx of cholecystectomy Family History Family History Father Diabetes mellitus Mother Family history of multiple sclerosis Other Family history of congenital heart disease Family history of malignant neoplasm Social History Social History Social History: Caffeine-rarely Smoking packs per day: 0.5 Smoking cigarettes per day: 10.0 Years smoked: 4 Smoking pack-years: 2.00 Smoking status: Former smoker Tobacco type: cigarettes Smoking end date: 11/19/67 Alcohol intake: never Substance use: never Substance use type: does not use Lack of Transportation: No Lack of Food: Never True Current Housing: I Have Housing Concerned About Future Housing: No Difficulty Paying Gas/Electric Bills: No Difficulty Paying for Meds: No Currently Unemployed: No Education: High School Diploma/GED Difficulty w/ Childcare or Family Care: No Living arrangements: with family Spiritual care concerns: No Anes - Eval Final PreProcedure Day of Procedure 02/05/24 12:21 Patient weight: obese Heart: regular rate and rhythm Lungs: clear to auscultation Airway: Mallampati scale class II Neurological: alert and oriented Last oral intake: >/= 8 hours ASA classification: III Emergent: no Anesthetic plan: proceed Anesthesia type and monitoring: general ETT and standard monitoring Results Review: All pre-operative results and documents have been reviewed as part of the pre-operative
[2024-02-05 12:33] LABS: Sodium 133 mmol/L (137-145)
[2024-02-05] MEDS: ceFAZolin 2 GM/D5W 50 ML 2 GM/50 ML BAG IVPB (13:06)
[2024-02-05] MEDS: OXYMETAZOLINE HCL 0.05% NAS 15 ML BTL (*BKC) 1 SPRAY NASAL (13:24)
[2024-02-05] MEDS: TOBRAMYCIN SULFATE 80 MG/2 ML VIAL 400 MG IRRIGATION (13:57)
--- NOTE | 2024-02-05 13:58 | SUR.OPER ---
Aerobic, anaerobic and gram stain sent with ISAAC Montalvo and received in pathology by Emily
--- NOTE | 2024-02-05 14:18 | SUR.OPER ---
Aerobic, anaerobic and gram stain # 2 sinus sent with ISAAC Montalvo and received by Sivan
--- NOTE | 2024-02-05 15:40 | SUR.PHASEI ---
Notified Dr. Red regarding patient's elevated BP of SBP 160-170's. Patient okay to move to phase 2 of recovery and discharge home when stable.
--- NOTE | 2024-02-05 15:40 | W.PM.PROC2 ---
Procedure Note - Detailed Date of Procedure 02/05/24 Pre-op Diagnosis chronic sinusitis Post-op Diagnosis Same Procedure Performed Image guided endoscopic left maxillary antrostomy, total ethmoidectomy, frontal sinusotomy. Surgeon Rex Lara MD Anesthesia General Indications See above Findings copious amounts of purulence at all the aforementioned sinuses edematous inflamed tissue no fungal debris. Description of Procedure Patient identified consent verified preop. Patient brought to the operating room. Time-out performed. General anesthesia induced endotracheal tube secured. Patient prepped draped position procedure confirmed 2nd time-out performed. Image guidance initiated and confirmed. Afrin-soaked pledgets placed for 5 minutes then removed. 0 degree endoscope utilized maxillary antrostomy performed after medialized the middle turbinate was performed with double ball tip probe under image guidance with backbiter and straight through cut as well as microdebrider and rad 40 image guided microdebrider. Copious amounts of purulence this was cultured. Wound irrigated throughout the entire case with tobramycin infused sterile normal saline. Total ethmoidectomy performed with Kerrison microdebrider and straight through cut. Skull base not violated orbit not violated septum intact middle turbinate intact as well. Frontal sinusotomy performed with image guidance Cobra draft instruments and Hosemann. The wound is copiously irrigated purulence removed from all the aforementioned sinuses. Patient tolerated the procedure very well blood loss 25 cc. I performed all dictated portions of procedure Nova pack was placed on that side a small amount. She has to catch any bleeding. I performed all dictated portions of procedure care the patient given back to Anesthesiology there were no complications patient taken to PACU in PACU her vision and extraocular eye movement was intact. Estimated Blood Loss 25 Drains No Packing Yes Pathology None sent Complications No immediate complications Condition Stable Disposition PACU [facility] Billing Surgery - Charge Forward: Surgery Billing
== END 2024-02-05 16:45 | disposition home or self-care (01) ==
PROVIDERS: Anesthesiology; PCP Internal Medicine; Visit Provider Otolaryngology
PROC: (CPT 31256; principal; 2024-02-05 13:15)
DX: J32.9 Chronic sinusitis, unspecified (principal); J34.2 Deviated nasal septum; R09.82 Postnasal drip; I10 Essential (primary) hypertension; E78.5 Hyperlipidemia, unspecified; I25.10 Atherosclerotic heart disease of native coronary artery without angina pectoris; K21.9 Gastro-esophageal reflux disease without esophagitis; E21.3 Hyperparathyroidism, unspecified; G47.33 Obstructive sleep apnea (adult) (pediatric); E66.9 Obesity, unspecified; Z68.38 Body mass index [BMI] 38.0-38.9, adult; Z79.82 Long term (current) use of aspirin; Z79.52 Long term (current) use of systemic steroids; Z90.49 Acquired absence of other specified parts of digestive tract; Z87.891 Personal history of nicotine dependence; Z82.49 Family history of ischemic heart disease and other diseases of the circulatory system; Z80.9 Family history of malignant neoplasm, unspecified
CPT/HCPCS: 31256; 31253; 61782; 36415; 84295; 87070; 87075; 87147; 87181; 87205; A9270; J0330; J0690; J1100; J2405; J2704; J3010; J3260; J7050; J7120

== ENCOUNTER 2024-03-28 10:46 | Outpatient (CLI) | payer MEDICARE, OTHER, SELFPAY ==
--- NOTE | ~2024-03-28 | US_ITS ---
EXAMINATION: US soft tissue LE RT DATE: 03/28/2024 11:05 INDICATION: Right posterior knee pain, swelling/mass and inflammation. TECHNIQUE: Multiple grayscale and Doppler ultrasound images of the popliteal fossa the right knee wer e obtained. COMPARISON: None FINDINGS: Normal appearance to the right popliteal artery and vein. No pathologically enlarged lymph nodes, Harshal er's cyst or other abnormal masses or fluid collections identified. IMPRESSION: 1. Normal ultrasound of the popliteal fossa the right knee. Reviewed, dictated and finalized at location A.
== END 2024-03-28 10:47 ==
LOC: MICIMG 10:47
PROVIDERS: PCP Nurse Practitioner Family; Visit Provider Nurse Practitioner Family
DX: R22.41 Localized swelling, mass and lump, right lower limb (principal)
CPT/HCPCS: 76882

== ENCOUNTER 2025-01-22 15:38 | Outpatient (CLI) | payer MEDICARE, OTHER, SELFPAY ==
--- NOTE | ~2025-01-22 | MM_ITS ---
EXAMINATION: MM screening [facility] BI w mike HISTORY: Screening. Post excisional biopsy within the left breast in 2001 yielding benign results. TECHNIQUE: Craniocaudal and mediolateral oblique 3-D tomosynthesis images were obtained and synthetic 2-D images were generated. CAD analysis was submitted and interpreted. COMPARISON: 01/01/2024 and dating back to 05/16/2019 BREAST PARENCHYMAL COMPOSITION: There are scattered areas of fibroglandular density. FINDINGS: Size asymmetry within the bilateral breast tissue, where the right is significantly larger than the left, consistent with patient's history. Punctate and bulky calcifications are detected bilaterally, stable and benign in appearance. Stable parenchymal pattern without suspicious microcalcifications, architectural distortion, discrete masses or significant asymmetry. IMPRESSION: 1. No mammographic/tomographic evidence of malignancy. Follow-up as per ACR/ACS/SBI guidelines is suggested. BI-RADS Category 2: Benign finding(s). Reviewed, dictated and finalized at location A. R AND DELIVERY REGISTERED NURSE
== END 2025-01-22 15:39 | disposition home or self-care (01) ==
LOC: MICIMG 15:39
PROVIDERS: PCP Nurse Practitioner; Visit Provider Nurse Practitioner
DX: Z12.31 Encounter for screening mammogram for malignant neoplasm of breast (principal); R92.8 Other abnormal and inconclusive findings on diagnostic imaging of breast
CPT/HCPCS: 77063; 77067

== ENCOUNTER 2025-06-08 13:58 | Outpatient (CLI) | payer MEDICARE, OTHER, SELFPAY ==
--- NOTE | ~2025-06-08 | XR_ITS ---
EXAM/ PROCEDURE: XR lumbar spine 2-3V - 06/08/2025 14:18 CDT HISTORY: 79 years old Female with low back pain COMPARISON: None available TECHNIQUE: Three view(s) FINDINGS/ IMPRESSION: There are no fractures or dislocations.Multilevel degenerative changes are seen. Dextroscoliosis seen . Mild stool burden. Grade 1 anterolisthesis of L4 on L5, likely degenerative. Atherosclerotic calcifications are seen. Ch olecystectomy clips are seen. Reviewed, dictated and finalized at location A.
== END 2025-06-08 13:59 | disposition home or self-care (01) ==
PROVIDERS: PCP Internal Medicine; Visit Provider Internal Medicine
DX: M54.50 Low back pain, unspecified (principal); Z90.49 Acquired absence of other specified parts of digestive tract
CPT/HCPCS: 72100

== ENCOUNTER 2025-07-08 08:22 | Outpatient (RCR) | payer MEDICARE, OTHER, SELFPAY ==
[2025-07-08 09:00] VITALS: BMI 36.6
== END 2025-09-21 09:17 | disposition home or self-care (01) ==
LOC: ANHWOC 08:22
PROVIDERS: PCP Internal Medicine; Visit Provider Internal Medicine
DX: I87.2 Venous insufficiency (chronic) (peripheral) (principal); I89.0 Lymphedema, not elsewhere classified; L97.819 Non-pressure chronic ulcer of other part of right lower leg with unspecified severity; L97.929 Non-pressure chronic ulcer of unspecified part of left lower leg with unspecified severity
CPT/HCPCS: 99214; A9270; G0463

== ENCOUNTER 2025-07-08 11:06 | Outpatient (CLI) | payer MEDICARE, OTHER, SELFPAY ==
--- NOTE | ~2025-07-08 | MR_ITS ---
MRI of the lumbar spine Clinical History: Back pain Technique: Axial T2-weighted images, and sagittal T1-weighted, T2-weighted, and T2 fat-sat images were acquired. Findings: There is mild acute compression fracture at the inferior right region of L1, with mild loss of height and surrounding marrow edema. There is 8 mm anterolisthesis of L4 over L5. At L1-L2, there is severe degenerative disc narrowing. There is diffuse disc bulge with moderate facet arthropathy. There is mild central canal stenosis. There is moderate bilateral neural foraminal narrowing. At L2-L3, there is severe degenerative narrowing. There is disc bulge with moderate to advanced facet arthropathy. There is mild central canal stenosis. There is moderate left neural foraminal narrowing and minimal right neural foraminal narrowing. At L3-L4, there is severe degenerative disc narrowing. There is minimal disc bulge. There is advanced facet arthropathy. There is minimal central canal stenosis. There is moderate left neural foraminal narrowing. Right neural foramen preserved. At L4-L5, there is diffuse disc bulge/uncovering with severe facet arthropathy. There is moderate central canal stenosis. There is mild bilateral neural foraminal narrowing. At L5-S1, there is degenerative disc narrowing with diffuse disc bulge and moderate facet arthropathy. No central canal stenosis. There is moderate bilateral neural foraminal narrowing, left worse than right. Paravertebral soft tissues are unremarkable. Impression: Acute compression fracture of L1, as detailed above. 8 mm anterolisthesis of L4 over L5. Advanced degenerative spondylosis throughout the lumbar spine, as detailed above. Reviewed, dictated and finalized at [facility]. Impression: Acute compression fracture of L1, as detailed above. 8 mm anterolisthesis of L4 over L5. Advanced degenerative spondylosis throughout the lumbar spine, as detailed viviane leblanc
== END 2025-07-08 11:07 | disposition home or self-care (01) ==
LOC: GOSHIMG 11:07
PROVIDERS: PCP Internal Medicine; Visit Provider Internal Medicine
DX: S32.010A Wedge compression fracture of first lumbar vertebra, initial encounter for closed fracture (principal); X58.XXXA Exposure to other specified factors, initial encounter; M43.16 Spondylolisthesis, lumbar region; M47.816 Spondylosis without myelopathy or radiculopathy, lumbar region
CPT/HCPCS: 72148

== ENCOUNTER 2025-07-24 08:50 | Outpatient (CLI) | payer MEDICARE, OTHER, SELFPAY ==
--- NOTE | ~2025-07-24 | DEXA_ITS ---
Bone Density Report Name: CATERINA RAMÍREZ Age: 80 Sex: Female Ethnicity: White Date of : 1945 Indication: osteopenia; height loss; hysterectomy; Referring Provider: SHANTE, JESSICA Kapoor Study: Bone densitometry was performed. Exam Date: July 24, 2025 Accession number: [id number] Bone Density: Region BMD T-score Z-score Classification AP Spine(L1, L2, L4) 1.233 1.8 4.5 Normal Femoral Neck (Left) 0.669 -1.6 0.7 Osteopenia Total Hip (Left) 0.760 -1.5 0.6 Osteopenia Femoral Neck (Right) 0.568 -2.5 -0.2 Osteoporosis Total Hip (Right) 0.724 -1.8 0.3 Osteopenia Total Hip Mean 0.742 -1.7 0.5 Osteopenia World Health Organization criteria for BMD impression classify patients as: Normal (T-score at or above -1.0), Osteopenia (T-score between -1.0 and -2.5), or Osteoporosis (T-score at or below -2.5). 10-year Fracture Risk: FRAX not reported because: Some T-score for Spine Total or Hip Total or Femoral Neck at or below -2.5 Previous Exams: -- Region Exam Age BMD T-score BMD Change BMD Change Date g/cm2 vs Baseline vs Previous -- AP Spine (L1-L2,L4) 07/24/2025 80 1.233 1.8 11.1%# 14.3%* 08/31/2022 77 1.079 0.4 -2.8%# 7.3%# 03/20/2016 70 1.006 -0.3 -9.4%# -4.1%* 03/04/2014 68 1.049 0.1 -5.5%# 11.5%* 02/29/2012 66 0.941 -0.8 -15.2%# 4.1%* 05/21/2009 63 0.905 -1.2 -18.5%# -5.5%* 01/12/2006 60 0.957 -0.7 -13.8%# -13.8%# 12/29/2002 57 1.110 0.7 Total Hip(Left) 07/24/2025 80 0.760 -1.5 -17.8%# -4.5%* 08/31/2022 77 0.796 -1.2 -14.0%# -7.4%# 05/16/2019 73 0.859 -0.7 -7.1%# -19.7%* 03/20/2016 70 1.070 1.0 15.7%# 14.4%* 03/04/2014 68 0.935 -0.1 1.1%# 19.9%* 02/29/2012 66 0.780 -1.3 -15.7%# -5.9%* 05/21/2009 63 0.829 -0.9 -10.4%# -19.3%* 01/12/2006 60 1.027 0.7 11.0%# 11.0%# 12/29/2002 57 0.925 -0.1 Total Hip(Right) 07/24/2025 80 0.724 -1.8 -20.7%# -9.5%* 08/31/2022 77 0.800 -1.2 -12.3%# -4.4%# 05/16/2019 73 0.837 -0.9 -8.3%# -13.1%* 03/20/2016 70 0.964 0.2 5.6%# -2.2% 03/04/2014 68 0.985 0.4 7.9%# 19.8%* 02/29/2012 66 0.822 -1.0 -9.9%# -5.9%* 05/21/2009 63 0.873 -0.6 -4.3%# -6.8%* 01/12/2006 60 0.937 0.0 2.6%# 2.6%# 12/29/2002 57 0.913 -0.2 -- *Denotes significance at 95% confidence level, LSC for AP Spine = 0.022 g/cm2, LSC for Total Hip = 0.027 g/cm2 Rate of change results reflect vertebral levels common to all scans # Denotes dissimilar scan types or analysis methods Clinical Information Provided by Patient: Has used the following medications: Reclast (i.e. zoledronate), Vitamin D, Calcium Has the following medical conditions: Hysterectomy Patient maximum height was 64 Menopause Age: 49 No regular weight bearing exercise Does not regularly consume dairy products Onset of menses at age 13 Number of children 3 Impression: The patient has osteoporosis, based on the Right Femoral Neck T-score. The BMD for the Total Hip(Left) decreased, changing by -4.5% since the last DXA exam. The BMD for the Total Hip(Right) decreased, changing by -9.5% since the last DXA exam. Discussion: INCREASED RISK OF FRACTURE. BONE DENSITY IS UNDESIRABLY LOW AT ONE OR MORE SKELETAL SITES, CONSISTENT WITH POSTMENOPAUSAL OSTEOPOROSIS. This patient's lowest T-score meets the World Health Organization's (WHO) criteria for osteoporosis at one or more sites (T-score -2.5 or below). In untreated patients, the risk of osteoporotic fracture increases approximately two-fold for each 1.0 SD decrease in T-score. Low bone density is not the only risk factor for fracture; also consider factors such as patient's age, frailty or poor health, risk of falling, risk of injury, previous osteoporotic fracture, family history of osteoporosis, cigarette smoking, low body weight, etc. Not everyone with low bone mineral density has osteoporosis; osteomalacia and other metabolic bone disorders should also be considered. Patients who have osteoporosis should be evaluated for specific diseases and conditions (secondary causes) that may cause or contribute to bone loss. The [place] Association [employer] Endocrinologists (AACE) and National Osteoporosis Foundation (NOF) recommend pharmacologic intervention for all postmenopausal women whose T-score is in this range. The patient should follow a healthful lifestyle (good nutrition with adequate calcium and vitamin D, and appropriate weight-bearing exercise). Follow-Up: Consider a repeat BMD and Vertebral Fracture Assessment (VFA) exam in 2 years or sooner if medically necessary, to reassess this patient's status. Reported by: MARY on 07/24/2025 9:24:00 AM. Reviewed, dictated and finalized at location A.
== END 2025-07-24 08:51 | disposition home or self-care (01) ==
LOC: MICIMG 08:51
PROVIDERS: PCP Internal Medicine; Visit Provider Internal Medicine
DX: M81.0 Age-related osteoporosis without current pathological fracture (principal); M85.89 Other specified disorders of bone density and structure, multiple sites
CPT/HCPCS: 77080

== ENCOUNTER 2025-07-30 12:12 | Outpatient (CLI) | payer MEDICARE, OTHER, SELFPAY ==
--- NOTE | ~2025-07-30 | XR_ITS ---
EXAMINATION: XR chest 2V, 07/30/2025 12:55 CDT HISTORY: PRE OP FOR BACK SURGERY COMPARISON: No comparisons available. Technique: 2 views obtained. Findings: The lungs are clear, no effusion. No pneumothorax. Heart is normal size. Mediastinal and hilar contours are within normal limits. Bony thorax no acute abnormality. Impression: No acute cardiopulmonary abnormality. Reviewed, dictated and finalized at location A. Impression: No acute cardiopulmonary abnormality.
--- NOTE | 2025-07-30 12:28 | ECG_ITS ---
Test Date: 2025-07-30 12:43:19 Measurements Intervals [place] Rate: 63 P: 46 VT: 188 QRS: -32 QRSD: 93 T: -6 QT: 391 QTc: 402 Interpretive Statements SINUS RHYTHM MARKED LEFT AXIS DEVIATION [QRS AXIS < -30] INCOMPLETE RIGHT BUNDLE BRANCH BLOCK [90+ ms QRS DURATION, TERMINAL R IN V1/V2, 40+ ms S IN I/aVL/V4/V5/V6] POSSIBLE ANTERIOR MYOCARDIAL INFARCTION [30 ms Q WAVE IN V3/V4, OR R < 0.2 mV IN V4], OF INDETERMINATE AGE No previous ECG available for comparison Electronically Signed On 07-30-2025 13:27:59 CDT by Conor Olsen M.D.
[2025-07-30 12:40] LABS: Hematocrit 40.4 % (37.0-47.0); Hemoglobin 12.9 g/dL (12.0-15.0); Immature Granulocyte Percent A 0.5 % (0-0.5); Lymphocytes Absolute Auto 1.12 K/mm3 (0.9-3.2); Mean Corpuscular HGB Conc 31.9 g/dl (32-36); Mean Corpuscular Hemoglobin 27.7 pg (26-34); Mean Corpuscular Volume 86.9 fl (80-100); Nucleated Red Blood Cells Absolute Auto 0.000 K/mm3 (0.0-0.012); Nucleated Red Blood Cells Perc 0.0 % (0.0-0.2); Platelet Count Result 210 k/mm3 (150-375); Red Blood Count 4.65 M/mm3 (4.2-5.4); White Blood Count 11.3 K/mm3 (4.5-10.0)
[2025-07-30 12:56] LABS: INR 1.0; Prothrombin Time 13.3 Seconds (11.1-14.7)
[2025-07-30 12:57] LABS: Partial Thromboplastin Time 25.6 Seconds (22.3-36.8)
[2025-07-30 13:03] LABS: Alanine Aminotransferase 17 U/L (6-35); Albumin Level 3.8 g/dL (3.5-5.1); Alkaline Phosphatase 88 U/L (38-126); Anion Gap 8 mmol/L (4-12); Aspartate Amino Transferase 27 U/L (14-36); Bilirubin,Total 0.5 mg/dL (0.2-1.3); Blood Urea Nitrogen 15 mg/dL (7-17); Calcium 8.7 mg/dL (8.4-10.2); Carbon Dioxide 29 mmol/L (22-30); Chloride 97 mmol/L (98-107); Estimated Glomerular Filt Rate > 60; Glucose 87 mg/dL (65-110); Potassium 4.3 mmol/L (3.4-5.0); Sodium 134 mmol/L (137-145); Total Protein 6.4 g/dL (6.3-8.2)
--- OUTSIDE RECORDS SUMMARY | 2025-07-30 14:02 | XMS_ITS | Clinical Summary ---
Author Organization [employer] [facility] Address [address] [place] [address] Care Team Providers Care Stone Gluer Name Role Phone Unavailable Primary Care Provider Unavailabl e Allergies No known active allergies Medications oxyBUTYnin (DITROPAN XL) 10 mg Extended Release 24 hour tablet Take 1 Tablet (10 mg) by mouth daily. 90 Tablet 3 09/08/2024 2:59 PM CDT 02/07/2024 Active Encounters Date Type Department Care Team Description 07/21/2025 External Device Data [facility] Provider, Abstract 07/07/2025 External Device Data [facility] Provider, Abstract 06/24/2025 External Device Data [facility] Provider, Abstract 06/03/2025 External Device Data [facility] Provider, Abstract 06/03/2025 External Device Data [facility] Provider, Abstract 06/03/2025 External Device Data [facility] Provider, Abstract 06/02/2025 External Device Data [facility] Provider, Abstract 05/06/2025 External Device Data [facility] Provider, Abstract 05/05/2025 External Device Data [facility] Provider, Abstract from Last 3 Months Social History Tobacco Use Types Packs/Day Years Used Date Smoking Tobacco: Never Assessed Comments Unknown Sex and Gender Information Value Date Recorded Sex Assigned at Not on file Legal Sex Female 8:37 AM CDT Gender Identity Not on file Sexual Orientation Not on file Plan of Treatment Health Maintenance Due Date Last Done Comments DTAP/TDAP/TD VACCINES (1 - Tdap) 1964 PNEUMOCOCCAL VACCINE 50+ YEARS (1 of 1 - PCV) 06/11/19 94 ZOSTER VACCINE (1 of 2) 1994 OSTEOPOROSIS SCREENING 2009 RSV VACCINE (60+ or ) (1 - 1-dose 75+ series) 2019 INFLUENZA VACCINE (#1) 2025 Insurance [employer] Medicare Part D
--- OUTSIDE RECORDS SUMMARY | 2025-07-30 14:02 | XMS_ITS | Clinical Summary ---
Author Organization [facility] [place] [address] Address [address] [place] [address] Care Team Providers Care Cloth Painter Name Role Phone Jose Lambert MD Primary Care Provider Allergies Active Allergy Reactions Criticality Noted Date Comments Adhesive Rash Medium 08/17/2020 Paper tape is OK Amlodipine Headache High 03/03/2016 Codeine Nausea & Vomiting Low 08/14/2011 Isosorbide Mononitrate Headache High 03/03/2016 Medications aspirin (ASPIR-81) 81 mg tablet take 1 tablet (81MG) by oral route every day 0 01/09/2011 Active multivitamin capsule take 1 capsule by oral route every day 0 0 04/09/2017 Active calcium carbonate (CALCIUM 600 ORAL) Take by mouth 2 (two) times a day Active magnesium oxide (MAG-OX) 250 mg (150.8 mg elemental) tabletIndicatio ns:hypomagnesem ia 1 tablet (250 mg total) 2 (two) times a day Active milk thistle 150 mg capsule Take by mouth 2 (two) times a day Active furosemide (LASIX) 20 mg tablet Take 1 tablet (20 mg total) by mouth daily for 7 days 7 tablet 08/21/2020 Active metoprolol tartrate (LOPRESSOR) 50 mg immediate release tablet Take 1 tablet (50 mg total) by mouth 2 (two) times a day 01/04/2021 Active atorvastatin (LIPITOR) 20 mg tablet Take 1 tablet (20 mg total) by mouth daily Active oxybutynin XL (DITROPAN-XL) 10 mg 24 hr tablet Take 1 tablet (10 mg total) by mouth daily 01/08/2023 Active cholecalciferol (Vitamin D3) 1,000 unit capsule Take 1 capsule (1,000 Units total) by mouth daily Active albuterol HFA (PROVENTIL HFA,VENTOLIN HFA,PROAIR HFA) 90 mcg/actuation inhaler Inhale 2 puffs 10/10/2023 Active ranolazine ER (RANEXA) 500 mg 12 hr tablet Take 1 tablet (500 mg total) by mouth 2 (two) times a day 180 tablet 3 11/18/[address] (PROTONIX) 40 mg EC tablet Take 1 tablet (40 mg total) by mouth daily Active LORazepam (ATIVAN) 0.5 mg tablet Take 1 tablet (0.5 mg total) by mouth every 6 (six) hours as needed for anxiety Active Active Problems Problem Noted Date Diagnosed Date Mixed hyperlipidemia 11/17/2021 Localized edema 03/08/2021 Mediastinal mass 07/30/2020 Overview (07/30/2020): Added automatically from request for surgery [id number] Statin myopathy 03/01/2020 FIELDS (dyspnea on exertion) 04/04/2018 Morbid obesity with BMI of 40.0-44.9, adult 03/19 Benign hypertension 10/16/2016 Overview (02/22/2017): HTN (hypertension), benign 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 ([facility]) 10/16/2016 Overview (02/23/2017): Coronary artery disease involving afognak coronary artery of afognak heart with other form of angina pectoris ROBBIE treated with BiPAP 10/16/2016 Overview (02/23/2017): ROBBIE (obstructive sleep apnea) Chest pain on exertion 10/16/2016 Overview (02/23/2017): Chest pain on exertion Gastroesophageal reflux disease without esophagi tis 10/16/2016 Overview (02/23/2017): Gastroesophageal reflux disease without esophagitis Body mass index 40+ - severely obese 10/16/2016 Overview (02/23/2017): Morbid obesity with BMI of 40.0-44.9, adult Hypercalcemia 04/04/2014 Overview (02/23/2017): HYPERCALCEMIA Nail disease 04/10/2011 Valgus deformity of great toe 04/10/2011 Hyperparathyroidism 02/14/2011 Chronic infection of sinus 12/23/2009 Resolved Problems Problem Noted Date Diagnosed Date Resolved Date Dyslipidemia 03/08/2021 11/17/2021 Statin intolerance 03/04/2019 3 Encounters Date Type Department Care Team Description 05/12/2025 Orders Only [facility] Medical [facility] Cardiology [address] [place] [address] Jose Lambert MD 05/11/2025 10:30 AM CDT Office Visit [facility] Cardiology [address] [place] [phone] Conor Olsen MD Coronary artery disease involving afognak coronary artery of afognak heart with angina pectoris with documented spasm (CMS/HCC) (HCC) (Primary Dx); Chest pain on exertion 05/11/2025 Orders Only [facility] Cardiology [address] [place] [phone] Jose Lambert MD from Last 3 Months Surgical History Surgery Date Site/Laterality Comments CHOLECYSTECTOMY Cholecystectomy HYSTERECTOMY Hysterectomy VARICOSE VEIN SURGERY PARATHYROID GLAND SURGERY TOTAL KNEE ARTHROPLASTY Left CATARACT EXTRACTION, BILATERAL BUNIONECTOMY Bilateral CATARACT EXTRACTION 06/19/2016 - 07/19/2016 JOINT REPLACEMENT 08/19/2011 - 09/18/2011 Medical History Medical History Date Comments Coronary artery disease Hypertension Sleep apnea GERD (gastroesophageal reflux disease) Mediastinal mass Hyperparathyroidism HOOKER (nonalcoholic steatohepatitis) Hemangioma of liver Varicose veins of legs Peripheral vascular disease Arthritis Chest pain on exertion Throat irritation Heart disease Family History Medical History Relation Name Comments Diabetes Father Joshua Silva Heart disease Father Joshua Silva chf Father Joshua Silva Multiple sclerosis Mother Other Other No family histo ry of Thyroid disease; Relation Name Status Comments Father Joshua Silva Alive Mother Other Social History Tobacco Use Types Packs/Day Years Used Date Smoking Tobacco: Former Cigarettes 0.3 6.2 0 04/24/1962 - 07/20/1968 Smokeless Tobacco: Never Comments:smoked 3 years in h er 20s Alcohol Use Standard Drinks/Week Comments No 0 (1 standard drink = 0.6 oz pur e alcohol) Comments Unknown Sex and Gender Information Value Date Recorded Sex Assigned at Not on file Legal Sex Female 10:40 PM CLINICAL CYTOPATHOLOGIST Gender Identity Not on file Sexual Orientation Not on file Obstetrics History Last Filed Vital Signs Vital Sign Reading Time Taken Comments Blood Pressure 108/64 05/11/2025 10:36 AM CDT Pulse 60 05/11/2025 10:36 AM CDT Temperature 36.7 C (98 F) 08/21/2020 12:40 PM CDT Respiratory Rate 18 05/11/2025 10:36 AM CDT Oxygen Saturation 96% 05/11/2025 10:36 AM CDT Inhaled Oxygen Concentration - - Weight 97.5 kg (215 lb) 05/11/2025 10:36 AM CDT Height 160 cm (5' 3) 05/11/2025 10:36 AM CDT Body Mass Index 38.09 05/11/2025 10:36 AM CDT Plan of Treatment Health Maintenance Due Date Last Done Comments Depression Screening 1945 Osteoporosis Screening-Bone Density Scan 1945 DTaP/Tdap/Td Vaccine (1 - Tdap) 1955 Hepatitis B Screening 1962 Zoster Vaccine (1 of 2) 1994 Well Visit 65+ 2009 Fall Risk Assessment 08/21/2021 08/21/2020 Influenza Vaccine (#1) 2025 9, 07/30/2018, 08/11/2017, Additional history exists Pneumococcal vaccine 65+ Completed 11/03/2014, 08/20 Procedures Procedure Name Priority Date/Time Associated Diagnosis Comments ELECTROCARDIOGRAM REPORT Routine 05/11/2025 Chest pain on exertion from Last 3 Months Results * Electrocardiogram Report (05/11/2025) 05/11/2025 us Conor Olsen MD ECG ORDERABLES Final Result from Last [address] [facility] [place] MEDICARE [facility] MEDICARE [employer] CLAIMS OFFICE MEDICARE [facility] Advance Directives For more information, please contact: [phone] * Full Code (Latest Code Status on File) Date Activated Date Inactivated Comments 08/19/2020 1:07 PM 08/21/2020 6:44 PM Care Teams Cloth Painter Relationship Specialty Start Date End Date Jose Lambert MD PCP - General 02/16/17
== END 2025-07-30 12:13 | disposition home or self-care (01) ==
PROVIDERS: PCP Internal Medicine; Visit Provider Nurse Practitioner Adult Health
DX: Z01.818 Encounter for other preprocedural examination (principal); R10.13 Epigastric pain; D69.9 Hemorrhagic condition, unspecified; G47.33 Obstructive sleep apnea (adult) (pediatric); I45.10 Unspecified right bundle-branch block; R94.31 Abnormal electrocardiogram [ECG] [EKG]
CPT/HCPCS: 36415; 71046; 80053; 85025; 85610; 85730; 93005

== ENCOUNTER 2025-08-11 00:30 | Day surgery (SDC) | payer MEDICARE, OTHER, SELFPAY ==
[2025-08-06 09:59] VITALS: BMI 36.6
--- NOTE | 2025-08-06 10:15 | PC.NURSE ---
[facility] has started construction of its new state of the art ER which will open Spring 2026. With this, we anticipate parking may be a challenge for some our surgical patients and families. Parking spaces are limited but are available for all Surgical, obstetrics, and ER patients sharing this lot. If you arrive and find you are having a hard time finding a parking space, please note that we understand the challenges, please drive around the hospital and park near Hospital Entrance 1. When you enter this entrance, you can ask a volunteer to direct or take you back to the surgical waiting area to check in. We appreciate everyone?s understanding of these expected challenges while we build for your future. Report to the Outpatient Waiting Room, entrance under the green pavilion located off [address], at time __10:30am on date _08/11/25 . Planned Procedure Time: __12:30pm .? Time changes happen often and if your time is changed the preop area will call you the afternoon before. - You and your visitor will be asked to self-screen and do not enter if you have any COVID symptoms. Please call surgeon if you need to reschedule. - A mask is optional within the hospital at this time. Patients may have NO food or drink after Midnight and just sips of water w meds only preop. . Take only the following medications with a SIP of water on the morning of surgery: ___Metoprolol & Ranexa, Tylenol if needed DO NOT STOP ANY OF YOUR OTHER PRESCRIPTION MEDICATIONS PRIOR TO SURGERY EXCEPT THE FOLLOWING Hold all vitamins and supplements for 3 days per anesthesiologist. Medications to discontinue per physician HOLD ASA/NSAIDS for 7 days per PCP/TIFFANIE Date to take last dose____08/04/25 Please no make-up, nail telugu, hairspray, perfume, deodorant, or body powder the day of surgery.? No jewelry (including any body piercings) or valuables the day of surgery, leave them at home.? Please take a shower or bath the night before & the morning of, surgery with an antibacterial soap.? Wear comfortable, loose fitting clothing.? - Jewelry must be removed prior to entering the operating room.? Rings and piercings that are not removed may be cut off. - The hospital will not accept responsibility for valuables.? - Please leave all valuables, including medications, at home the day of surgery. If you are going home after surgery, a licensed route sales delivery driver must drive you home.? - NO public transportation without another adult if you receive anesthesia. - We recommend that an adult stay with you for 24 hours following discharge. - We also recommend that you do not drive, make important decision, drink alcoholic beverages, or take any drugs that were not prescribed by your health care provider for at least 24 hours after your discharge time. DR MORENO- NO DRIVING FOR 24 HRS post procedure. Follow any additional instructions given to you from your surgeon. Telephone instructions given to _Patient and asked if any additional questions and then verbalized understanding. Patient advised to call surgeon office or pre surgery nurse liaison [phone] if any additional questions.
[2025-08-11] VITALS (9 sets, daily range): BP systolic 134–165; BP diastolic 55–78; PULSE 55–63; RESP 12–18; TEMP 36.3–36.7; O2SAT 97–100
--- NOTE | ~2025-08-11 | XR_ITS ---
XR fluoroscopy no charge Indication: Kyphoplasty TECHNIQUE: Fluoroscopy used during kyphoplasty performed by [Daljit Mosley MD] on 08/11/2025. 1 minute 22 seconds of fluoroscopy with 22 fluoroscopic images captured. FINDINGS: Correlate with procedure note. IMPRESSION: Fluoroscopy used during kyphoplasty. Reviewed, dictated and finalized at location O.
--- NOTE | 2025-08-11 11:59 | WPDHPUPDATE1 ---
History and Physical Update Update Date/Time: 08/11/25 11:59 History and Physical has been reviewed, including an updated exam of the patient. There are NO changes in the patient's condition. Risks, benefits, and alternatives have been discussed and questions answered. Patient agrees to proceed with procedure.
--- NOTE | 2025-08-11 12:01 | W.PM.PROC2 ---
Procedure Note - Detailed Date of Procedure 08/11/25 Pre-op Diagnosis L1 wedge compression fracture with nonunion, senile osteoporosis Post-op Diagnosis Same Procedure Performed Percutaneous balloon-assisted vertebral augmentation of the L1 vertebral body under fluoroscopic guidance (Kyphoplasty). Surgeon Daljit Mosley MD Workers Compensation Defense Attorney None. Anesthesia General (GETA with local anesthetic infiltration in the prone position.) Indications Osteoporotic vertebral compression fracture with greater than 25% deformity in the absence of neurologic deficit or significant central canal stenosis. Description of Procedure INFORMED CONSENT: Risks, benefits and alternatives to the procedure were discussed in detail with the patient who expressed explicit understanding and consent to proceed. Patient was informed verbally and in written form regarding the risks associated with the procedure including the low risk of serious local or systemic infection, bleeding/bruising, allergic reaction, pulmonary embolus/edema, extravasation of cement requiring surgical intervention, worsening fracture, nerve or organ injury, paralysis, procedural site pain or discomfort, worsening pain and/or mobility, failure to treat and/or disfigurement. The patient expressed explicit understanding and consent to proceed. All materials required for the procedure were available prior to procedure start. Site and side were marked prior to procedure and confirmed in the presence of the unsedated patient. PROCEDURE IN DETAIL: After full informed consent was obtained, appropriate IV access was confirmed by Anesthesia without difficulty. The patient was escorted to the operative theater. Supplemental oxygen was initiated to maintain O2 saturation between 92-99%. Careful positioning was undertaken and ASA standard monitors were applied and checked routinely throughout the case. Prophylactic antibiotics were administered prior to procedure start. Patient was placed in the prone position in optimal extension using pillows and the thoracolumbar spine was prepared and draped in the usual sterile manner using tinted ChloraPrep scrub and allowed to dry completely for at least 3 minutes. Fluoroscopy in the AP and lateral position was used with perfect linear projections at the L1 level to identify/confirm the procedural level and presence of deformity. Percutaneous trocar was introduced from a rightward approach (transpedicular approach) via a small stab skin incision made at the entry site using a #11 scalpel following adequate anesthesia via infiltration of a 1:1 admixture of 2% PF lidocaine with epinephrine and 0.5% PF bupivacaine with a 2 inch 27-gauge needle after negative aspiration for blood or body fluid. Anesthesia was extended to periosteum at the intended procedural level with a 3.5 inch 22g Quincke spinal needle. A 10-gauge trocar with a rey tip was introduced through the skin incision and docked on the right posterior pedicle of L1 in the superolateral (11 o'clock) position. Under live fluoroscopy while alternating between AP and lateral views, the trocar was advanced intermittently in the anterior, medial and inferior directions using a metal surgical mallet, taking care to advance only in the AP view, using lateral views to confirm depth and direction. In the AP view, as the tip of the trocar approached (but did not violate) the medial, inferior border of the pedicle, lateral view was utilized to confirm advancement of the trocar through the pedicle and into the posterior third of the vertebral body. Trocar was then advanced in the lateral view, with appropriate trajectory and final placement identified/confirmed by intermittent evaluation in the AP view until the trocar tip reached the anterior 3rd of the vertebral body at or near midline without violation of the anterior or lateral vertebral fulton. A 20 ml balloon catheter prefilled with Omnipaque 300 contrast medium was advanced to the anterior third of the vertebral body at or near midline in the medial and lateral views and inflated with contrast to a volume of 5 ml or less at an internal pressure of 400 psi or less, creating an appropriately sized cavity within the vertebral body with correct balloon location identified in both the AP and Lateral views. The cement introducer was then advanced into the far end of the cavity and the void was filled in a controlled fashion, in 0.5-1.0 mL increments, monitoring in both the AP and Lateral views for appropriate cement position and fill, utilizing a total of 3-5 mm of polymethylmethacrylate containing nonionic contrast, stopping with any posterior spread or evidence of vascular, disc space or extra vertebral encroachment of cement. Once appropriate fill was confirmed in both the lateral and AP views, the cement introducer was withdrawn, stylette was reinserted and trocar removed in a stepwise fashion under live fluoroscopy in the lateral view to ensure lack of cement migration into the trocar tracts. The same procedure was repeated for all additional intended levels/structures treated, T11, with identical methodology modified to compensate for different level/location, with similar results and no evidence of complication. Patient was allowed to remain in the prone position under relative thoracolumbar extension until cement had fully hardened, or approximately 15 minutes after initial mixing. The patient's skin was cleansed and the stab incision(s) were closed using benzoin and Steri-Strips in a kylah- crossing fashion and covered by a non-stick sponge pad and self-adherent clear, occlusive dressing. The patient tolerated this procedure well. Anesthesia was reversed without difficulty. The patient was transported to the recovery area in stable condition and without evidence of subsequent complication. Peripheral IV was discontinued. Patient was eventually discharged under their own power with pain satisfactorily controlled, without significant nausea or neurologic deficit and with full ability to ambulate, void and tolerate liquids by mouth. The patient was instructed to avoid excessive activity for the next 48 hours. Patient was restricted from driving for 48 hours. The patient was instructed to restart any anticoagulants 24 hours after the procedure unless otherwise directed by their prescribing physician. They were instructed to avoid heavy lifting, pushing, pulling or carrying weights greater than 5 pounds until released. They are to avoid any overhead work. The patient is to sponge bathe only for the next 48 hours. Top bandage can be removed after 48 hours. Steri-Strips are to remain in place until they fall off on their own or until removed by physician. After 48 hours and top bandage is removed, patient may resume showering. No bathing or soaking for one week or as released by physician. The patient is to monitor for signs of infection including fevers, chills, night sweats, redness, swelling or discharge at the procedural site. They are to monitor for signs of neurologic change including new numbness, weakness or pain in the upper or lower extremities, headaches or loss of bowel or bladder control. Should they develop any of these symptoms they are to call our office immediately during office hours or report directly to the nearest emergency department if after hours or if no immediate answer. COMPLICATIONS: None. COMMENTS: None. EBL: Minimal. DRAINS: None. PACKING: None. PATHOLOGY: None. Drains No Packing No Complications No immediate complications Condition Stable Disposition PACU [facility] Billing Surgery - Charge Forward: Surgery Billing
--- NOTE | 2025-08-11 13:52 | WPDANESEPPF ---
Anes - Initial Pre Proc Eval Procedure: Operation Date: 08/11/25 12:30 Proposed Procedures p Percutaneous Balloon Assisted Verterbral Augmentation (Kyphoplasty) at L1 Under Fluoroscopic Guidance - Daljit Mosley MD Date/Time: 08/11/25 13:52 Surgeon: Daljit Mosley MD Pre Op Diagnosis: L1 fracture Patient Data Age: 80 Gender: F Height: 1.57 m Weight: 92.7 kg Last Vital Signs Temp 98.1 F 08/11/25 10:23 Pulse 56 L 08/11/25 10:23 Resp 14 08/11/25 10:23 BP 165/64 H 08/11/25 10:23 Pulse Ox 100 08/11/25 10:23 O2 Del Method Room Air 08/11/25 10:23 Allergies Allergy/AdvReac Type Severity Reaction Status Date / Time Latex, Natural Rubber AdvReac Intermediate Rash Verified 08/06/25 10:22 codeine AdvReac Mild Nausea Verified 08/06/25 10:22 Home Medications ?Medication ?Instructions ?Recorded ?Confirmed ?Type aspirin 81 mg tablet,delayed 81 mg PO HS 11/01/21 08/06/25 History release atorvastatin 20 mg tablet 20 mg PO HS 11/01/21 08/06/25 History calcium carbonate (Calcium 600) 600 mg PO DAILY 11/01/21 08/06/25 History milk thistle 175 mg tablet 175 mg PO DAILY 11/01/21 08/06/25 History furosemide 20 mg tablet 20 mg PO QAM 05/29/23 08/06/25 History oxybutynin chloride 5 mg tablet 5 mg PO DAILY 05/29/23 08/06/25 History metoprolol succinate 25 mg capsule 50 mg PO BID 10/31/23 08/06/25 History sprinkle, ext. release 24 hr omeprazole 40 mg capsule,delayed 40 mg PO DAILY #90 caps 12/27/23 08/06/25 Rx release cholecalciferol (vitamin D3) 25 25 mcg PO DAILY 01/25/24 08/06/25 History mcg (1,000 unit) tablet ranolazine 500 mg tablet,extended 500 mg PO BID 01/25/24 08/06/25 History release,12 hr fluticasone propionate 50 2 spray intranasal DAILY chronic 12/10/24 08/06/25 Rx mcg/actuation nasal seasonal allergic rhinitis #18 mL spray,suspension (Flonase Allergy Relief) alendronate 70 mg tablet 70 mg PO WEEKLY 08/06/25 08/06/25 History Patient hx anesthesia problems: none Family hx anesthesia problems: none Results Review: All pre-operative results and documents have been reviewed as part of the pre-operative evaluation. [facility] Past Medical History Medical History Compression fracture of L1 lumbar vertebra Dorsalgia Fatty liver Ventral hernia Constipation Liver lesion Liver cyst Belching Hyperplastic polyp of stomach Nonerosive esophageal reflux disease Early satiety Nausea Epigastric pain Hyperparathyroidism GERD (gastroesophageal reflux disease) HTN (hypertension) HLD (hyperlipidemia) ROBBIE (obstructive sleep apnea) Coronary artery disease Surgical History Surgical History H/O sinus surgery Hx of cholecystectomy History of hysterectomy Family History Family History Father Diabetes mellitus Mother Family history of multiple sclerosis Other Family history of congenital heart disease Family history of malignant neoplasm Social History Social History Social History: Caffeine-rarely Smoking packs per day: 1 Smoking cigarettes per day: 20.0 Years smoked: 3 Smoking pack-years: 3.00 Smoking status: Former smoker Tobacco type: cigarettes Second hand tobacco smoke exposure: No Smoking end date: 11/19/69 Alcohol intake: never Substance use: never Substance use type: does not use Do You Feel Safe in your Home?: Yes Lack of Transportation: No Lack of Food: Never True Current Housing: I Have Housing Concerned About Future Housing: No Difficulty Paying Gas/Electric Bills: No Difficulty Paying for Meds: No Currently Unemployed: No Education: High School Diploma/GED Difficulty w/ Childcare or Family Care: No Living arrangements: alone Spiritual care concerns: No Anes - Eval Final PreProcedure Day of Procedure 08/11/25 13:52 Patient weight: obese Lungs: normal air movement Airway: Mallampati scale class II Neurological: alert and oriented Last oral intake: >/= 8 hours ASA classification: III Emergent: no Anesthetic plan: proceed Anesthesia type and monitoring: general ETT and standard monitoring Results Review: All pre-operative results and documents have been reviewed as part of the pre-operative evaluation. HTN, hyperlipidemia, ROBBIE mostly compliant w BiPAP but not of recent. EKG w NSR RBBB, pt states stress test 2023 nml. Informed Consent: The patient's anesthetic plan and its attendant risks and benefits were discussed with the patient/family/POA. Questions were solicited and answers provided to the satisfaction of the patient/family/POA.
[2025-08-11] MEDS: ceFAZolin 2 GM in SODIUM CHLORIDE 0.9% IV 50 ML 100 ML IVPB (14:21)
[2025-08-11] MEDS: BUPIVACAINE/EPINEPHRINE 0.5% 50 ML VIAL 10 ML INFILTRATE (14:49)
[2025-08-11] MEDS: LIDOCAINE 2% PF LOCAL INJ 5 ML VIAL 10 ML INFILTRATE (14:50)
[2025-08-11] MEDS: LACTATED RINGERS 1,000 ML 30 ML IV CONT (15:10)
[2025-08-11] MEDS: oxyCODONE HCL (*CRX) 5 MG TAB IR PO (16:50)
== END 2025-08-11 17:40 | disposition home or self-care (01) ==
PROVIDERS: PCP Internal Medicine; Visit Provider Anesthesiology Pain Medicine
PROC: (CPT 22514; principal; 2025-08-11 12:30)
DX: M80.08XA Age-related osteoporosis with current pathological fracture, vertebra(e), initial encounter for fracture (principal); K21.9 Gastro-esophageal reflux disease without esophagitis; E21.3 Hyperparathyroidism, unspecified; I10 Essential (primary) hypertension; E78.5 Hyperlipidemia, unspecified; G47.33 Obstructive sleep apnea (adult) (pediatric); I25.10 Atherosclerotic heart disease of native coronary artery without angina pectoris; M85.88 Other specified disorders of bone density and structure, other site; I45.10 Unspecified right bundle-branch block; E66.9 Obesity, unspecified; Z68.37 Body mass index [BMI] 37.0-37.9, adult; Z79.82 Long term (current) use of aspirin; Z99.89 Dependence on other enabling machines and devices; Z98.890 Other specified postprocedural states; Z90.49 Acquired absence of other specified parts of digestive tract; Z87.891 Personal history of nicotine dependence; Z80.9 Family history of malignant neoplasm, unspecified; Z82.49 Family history of ischemic heart disease and other diseases of the circulatory system
CPT/HCPCS: 22514; 99199; J0690; A9270; J1100; J2003; J2405; J2704; J3010; J7120

== ENCOUNTER 2025-09-29 08:50 | Day surgery (SDC) | payer MEDICARE, OTHER, SELFPAY ==
[2025-09-25 09:16] VITALS: BMI 38.2
--- NOTE | ~2025-09-29 | XR_ITS ---
EXAM/PROCEDURE: XR fluoroscopy no charge HISTORY: DIAG/PROG CLAIR L3,L4,L5 MEDIAL BRANCH/DORSAL RAMI NERVE BLK COMPARISON: None available. TECHNIQUE: Fluoroscopic spot images for back injection. IMPRESSION: No radiologist present for exam. Fluoroscopic time and dose are not documented. See procedure/operative notes for complete evaluation. Reviewed, dictated and finalized at location A. HNUT DOUGH MIXER
--- NOTE | 2025-09-29 06:10 | WPDHPUPDATE1 ---
History and Physical Update Update Date/Time: 09/29/25 06:10 History and Physical has been reviewed, including an updated exam of the patient. There are NO changes in the patient's condition. Risks, benefits, and alternatives have been discussed and questions answered. Patient agrees to proceed with procedure.
--- NOTE | 2025-09-29 06:11 | P.OP_ITS ---
Procedure Note - Detailed Date of Procedure 09/29/25 Pre-op Diagnosis Lumbar Spondylosis w/o Myelopathy or Radiculopathy Post-op Diagnosis Same Procedure Performed Diagnostic Bilateral Lumbar Medial Branch/Dorsal Ramus Blocks at L3, L4, L5 Treating the Bilateral L4-5, L5-S1 Facet Joints Under Fluoroscopic Guidance and with Contrast Control. (4 levels blocked). Surgeon Daljit Mosley MD Stamping Machine Operator None. Anesthesia Local Description of Procedure INFORMED CONSENT: Risks, benefits and alternatives to the procedure were discussed in detail with the patient who expressed explicit understanding and consent to proceed. Patient was informed verbally and in written form regarding the risks associated with the procedure including the low risk of serious infection, bleeding/bruising, allergic reaction, nerve or organ injury, paralysis, procedural site pain or discomfort, worsening pain and/or mobility, failure to treat and/or disfigurement. The patient expressed explicit understanding and consent to proceed. All materials required for the procedure were available prior to procedure start. Site and side were marked prior to procedure and confirmed in the presence of the patient. PROCEDURE IN DETAIL: The patient was brought to the procedural suite and placed in the prone position. Patient was made comfortable with use of pillows under the head/chest, hips and ankles. Skin overlying the injection site on the affected side(s) was prepared broadly with ChloraPrep applicator and draped in a sterile manner. Aseptic technique was used throughout. The endplates of the vertebral bodies at the site(s) of interest were aligned in the AP view. I psilateral oblique angulation was utilized to optimize visualization of the intersection between the superior articulating process and transverse process at each target site. Local anesthesia was established by infiltration with approximately 5 mL of 1% lidocaine via a 1-1/2 inch 27-gauge needle. A 25-gauge 5.0 inch Quincke spinal needle was advanced until the needle tip contacted periosteum at the target site, right L3. Lateral view was utilized to confirm the appropriate placement of the needle tip just anterior to the facet line and superior to the pedicle. In the Lateral view, 0.25 mL of Omnipaque 300 contrast medium was injected after negative aspiration for CSF, blood or other bodily fluid, showing appropriate extra-articular spread of contrast without evidence of intravascular, foraminal or intrathecal placement. A 0.5 mL solution of 0.5% PF bupivacaine was injected after negative repeat aspiration. Appropriate spread of the injectate was confirmed with washout of previously injected contrast. No parasthesias were elicited. Needle was removed completely intact without difficulty. The same exact procedure was repeated for all remaining levels on the ipsilateral side, right L4, L5 medial branches/dorsal ramus, modified as necessary to accommodate for the new target location with identical findings and results and no evidence of complication. The same exact procedure was repeated for all remaining levels on the contralateral side, left L3, L4, L5 medial branches/dorsal ramus, modified as necessary to accommodate for the new target location with identical findings and results and no evidence of complication. Images were saved and documented in the patient chart. Patient's skin was cleaned and sterile bandage applied. The patient tolerated the procedure well. The patient was transported to the recovery area in stable condition where they were observed for an appropriate amount of time prior to discharge, without evidence of complication. Patient was instructed on the appropriate completion of a pain diary over the next 12-24 hours. The patient was instructed to avoid excessive activity for the next 48 hours, including climbing and frequent use of stairs. Showers only for 48 hours. They were instructed not to drive or operate heavy machinery for 24 hours. They are to monitor for severe headaches, fevers, chills, night sweats, erythema/swelling at the site or any other signs of infection, bleeding/bruising, bowel or bladder changes as well as new pain, weakness or numbness in the upper or lower extremity. Should they notice these changes, they are instructed to call our office immediately or report directly to the nearest Emergency Department if no answer or if after posted office hours. COMPLICATIONS: None COMMENTS: None CONTRAST WASTED: 28.5mL Omnipaque 300. Complications No immediate complications Condition Stable Disposition Same day [facility] Billing Surgery - Charge Forward: Surgery Billing
--- OUTSIDE RECORDS SUMMARY | 2025-09-29 09:07 | XMS_ITS | Clinical Summary ---
Author Organization [facility] Address [address] [place] [address] Care Team Providers Care Electrical Appliance Preparer Name Role Phone Jose Lambert MD Primary Care Provider [phone] Source Comments [facility],non-owned Affiliates and Associated Physician Practices is amultiple site organization consisting of ambulatory clinics and hospital sitesin [place], [place], [place] and [place]. This disclosure is being madepursuant to the Care Everywhere program and may not contain all information available regarding this patient. Last updated 18.[facility] Allergies Active Allergy Reactions Criticality Noted Date Comments Codeine Nausea and/or Vomiting 08/14/2011 Medications * Be aware that medications may not be up to date on this document. Alwaysverify current medications with the patient. omeprazole (PRILOSEC) 40 MG capsule Take 40 mg by mouth daily before breakfast. Instructed to take a.m. Of surgery with sip of water Active metoprolol tartrate IR (LOPRESSOR) 25 MG tablet Take 25 mg by mouth 2 times daily. Instructed to take a.m. Of surgery with sip of water Active multivitamin daily (THERAGRAN) tablet Take 1 Tab by mouth daily with food. Active calcium-vitamin D (OS-CATERINA 500 + D) 500-200 MG-UNIT tablet Take 1 Tab by mouth once daily. Active B Complex Vitamins (VITAMIN B COMPLEX PO) Take 1 Cap by mouth once daily. Active zinc sulfate (ZINCATE) 220 MG capsule Take 220 mg by mouth once daily. Active vitamin B-12 (CYANOCOBALAMIN ) 100 MCG tablet Take 100 mcg by mouth once daily. Active fish oil/omega-3 fatty acids (FISH OIL) 1000 MG capsule Take 1,000 mg by mouth once daily. Will stop one week prior to surgery Active butalbital-acet aminophen-caffe ine (FIORICET) 50-325-40 MG tablet Take 1 Tab by mouth every 4 hours as needed. Active aspirin-acetami nophen-caffeine (EXCEDRIN) 250-250-65 MG tablet Take 1 Tab by mouth every 4 hours as needed. Will stop one week prior to surgery Active pseudoephedrine (SUDAFED) 60 MG tablet Take 60 mg by mouth every 4 hours as needed. Active melatonin 3 MG tablet Take 3 mg by mouth at bedtime. Active diphenhydrAMINE (BENADRYL) 25 MG capsule Take 25 mg by mouth nightly as needed. Active amoxicillin (AMOXIL) 500 MG capsule Take 4 Caps by mouth pre-Procedure once for 1 dose. 12 Cap 4 1 Active amoxicillin (AMOXIL) 500 MG capsule Take 4 Caps by mouth pre-Procedure once for 1 dose. Take 4 pills 1hr prior to dental appointment 12 Cap 1 2 Active Active Problems Problem Noted Date Diagnosed Date Knee joint replacement by other means 09/03/2012 DJD (degenerative joint disease) 09/11/2011 Immunizations Immunization Administration Dates Next Due INFLUENZA VACCINE 08/04/2011 PNEUMOCOCCAL PPSV23 09/07/2011 Family History Medical History Relation Name Comments Diabetes Father Relation Name Status Comments Father Social History Tobacco Use Types Packs/Day Years Used Date Smoking Tobacco: Former Cigarettes Q uit: 08/14/1969 Smokeless Tobacco: Never Alcohol Use Standard Drinks/Week Comments No 0 (1 standard drink = 0.6 oz pur e alcohol) Comments Unknown Sex and Gender Information Value Date Recorded Sex Assigned at Not on file Legal Sex Female 11:45 AM [employer] Gender Identity Not on file Sexual Orientation Not on file Last Filed Vital Signs Vital Sign Reading Time Taken Comments Blood Pressure 114/43 09/07/2011 9:02 AM CDT Pulse 72 09/07/2011 9:02 AM CDT Temperature 36.6 C (97.8 F) 09/07/2011 5:05 AM CDT Respiratory Rate 18 09/07/2011 5:05 AM CDT Oxygen Saturation 96% 09/07/2011 5:05 AM CDT Inhaled Oxygen Concentration - - Weight 105.4 kg (232 lb 5.8 oz) 09/04/2011 6:15 AM CDT Height 162.6 cm (5' 4) 09/04/2011 6:15 AM CDT Body Mass Index 39.89 09/04/2011 6:15 AM CDT Plan of Treatment Health Maintenance Due Date Last Done Comments BONE DENSITY TESTING 1945 MEDICARE AWV 12 MONTHS 1945 DTAP/TDAP/TD VACCINES (1 - Tdap) 1963 ZOSTER VACCINE (1 of 2) 1994 PNEUMOCOCCAL VACCINE 50+ (2 of 2 - PCV) 09/07/2012 09/07/2011 Respiratory Syncytial Virus (RSV) Vaccine Pt: or over 60 yrs (1 - 1-dose 75+ series) 2019 DEPRESSION SCREENING 11/19/2024 COVID-19 VACCINE (1 - 2023-2 5 season) 2025 INFLUENZA VACCINE (#1) 2025 08/04/2011 HEPATITIS B VACCINE Aged Out No longe r eligible based on patient's age to complete this topic HIB VACCINE Aged Out No longer eligi ble based on patient's age to complete this topic HPV VACCINE Aged Out No longer eligi ble based on patient's age to complete this topic MENINGOCOCCAL (Group B) VACC INE SHARED DECISION-MAKING Aged Out No longer eligibl e based on patient's age to complete this topic MENINGOCOCCAL GROUPS A/C/Y/W VACCINE Aged Out No longer eligible b ased on patient's age to complete this topic Insurance MEDICARE MEDICARE [facility] MEDICARE Advance Directives Documents on File Type Date Recorded Patient Occupational Safety And Health Manager Expl anation Adv Directive/Living Will/POA 09/08/2011 3:06 PM * FULL RESUSCITATION (Latest Code Status on File) Date Activated Date Inactivated Comments 09/04/2011 11:12 AM 09/07/2011 11:42 PM Care Teams Electrical Appliance Preparer Relationship Specialty Start Date End Date Jose Lambert MD [address] [place] [id number] PCP - General 07/19/11
--- OUTSIDE RECORDS SUMMARY | 2025-09-29 09:07 | XMS_ITS | Encounter Summary ---
Author Organization [facility] Address [address] [address] Care Team Providers Care Rug Cleaner Name Role Phone Joes Lambert MD Primary Care Provider [phone] Encounter Details Date Type Department Care Team (Late st Contact Info) Description 04/13/2021 Lab Requisition [facility] DermPath Lab [address] [place] [id number] Nelson Goyal MD [address] [place] [address] Social History Tobacco Use Types Packs/Day Years Used Date Smoking Tobacco: Former Cigarettes Q uit: 08/14/1969 Smokeless Tobacco: Never Alcohol Use Standard Drinks/Week Comments No 0 (1 standard drink = 0.6 oz pur e alcohol) Comments Unknown Sex and Gender Information Value Date Recorded Sex Assigned at Not on file 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 Gender Identity Not on file Sexual Orientation Not on file documented as of this encounter Plan of Treatment Not on file documented as of this encounter Procedures Procedure Name Priority Date/Time Associated Diagnosis Comments DERMATOPATHOLOGY Routine 04/12/2021 12:0 0 AM CDT documented in this encounter Results * DERMATOPATHOLOGY (04/12/2021 12:00 AM CDT) Case Report Dermatopathology Report Case: [id number] Authorizing Provider: Nelson Goyla MD Collected: 04/12/2021 12:00 AM Ordering Location: [facility] Received: 04/13/2021 02:14 PM Pathologist: Ginny West MD Specimen: Skin, right forehead 3:16 PM CDT DERMATOPATHOLOGY LABORATORY Final Diagnosis Specimen A. SKIN, right forehead: BASAL CELL CARCINOMA (C44.319) (see microscopic description and comment) 3:16 PM CDT DERMATOPATHOLOGY LABORATORY at 1516 CDT Clinical History R/O BCC 3:16 PM CDT DERMATOPATHOLOGY LABORATORY Gross Description Specimen A: Received is one formalin filled container labeled with the patient's name and designated right forehead. The specimen consists of a shave biopsy measuring 5x4x1 mm. Jar 0. 3:16 PM CDT DERMATOPATHOLOGY LABORATORY Microscopic Description Specimen A. SKIN, right forehead: The specimen consists of aggregates of basaloid cells, located within the superficial dermis, with high nuclear to cytoplasmic ratio and peripheral palisading. COMMENT: The small size of the specimen limits subtyping of the lesion. 3:16 PM CDT DERMATOPATHOLOGY LABORATORY Disclaimer An external and internal positive and negative controls are appropriate for the histochemical, immunohistochemical and immunofluorescence stain(s) in this case (if any), except where stated explicitly. The performance characteristics of the stain(s) cited in this report were developed and its performance characteristic determined by the Dermatopathology Laboratory at [facility], directed by Dr. Jessica Vaughn. These tests need not be, and therefore are not, approved by the [place] Food and Drug Administration. The tests are used for clinical purposes. Billing Codes Specimen Charges Stain Charges 79343 1 3:16 PM CDT DERMATOPATHOLOGY LABORATORY Embedded Images 3:16 PM CDT DERMATOPATHOLOGY LABORATORY Pathology/Cytolog y TISSUE SPECIMEN FROM SKIN / Unknown 04/12/2021 04/13/2021 2:14 PM CDT us Nelson Goyal MD LAB - PATHOLOGY/CYTOLOGY ORD ERABLES Final Result DERMATOPATHOLOGY LABORATORY [facility] - Department of Dermatology [facility] Medicine [address] [place] [address], [address] [phone] documented in this encounter Visit Diagnoses Not on filedocumented in this encounter Care Teams Rug Cleaner Relationship Specialty Start Date End Date Jose Lambert MD [address] [address] [address] [place] [address] PCP - General 07/19/11 documented as of this encounter
--- OUTSIDE RECORDS SUMMARY | 2025-09-29 09:07 | XMS_ITS | Encounter Summary ---
Author Organization [facility] Address [address] [place] [address] Care Team Providers Care Acetone Button Paster Name Role Phone Jose Lambert MD Primary Care Provider [phone] Encounter Details Date Type Department Care Team (Late st Contact Info) Description 09/02/[address] 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 DermPath Lab Received: 09/02/2020 12:20 PM Pathologist: Kelvin Vaughn MD Specimen: Skin, above right clavicle 0 3:59 PM CDT DERMATOPATHOLOGY LABORATORY Final Diagnosis Specimen A. SKIN, above right clavicle: BASAL CELL CARCINOMA, NODULAR TYPE (C44.612) 0 3:59 PM CDT DERMATOPATHOLOGY LABORATORY at 1559 CDT Clinical History R/O BCC, SCC, dermatitis. 0 3:59 PM CDT DERMATOPATHOLOGY LABORATORY Gross Description Specimen A: Received is one formalin filled container labeled with the patient's name and designated above right clavicle. The specimen consists of a shave biopsy measuring [id number]. Jar 0. 0 3:59 PM CDT DERMATOPATHOLOGY LABORATORY Microscopic Description Specimen A. SKIN, above right clavicle: Within the dermis there are aggregates of basaloid cells with a high nuclear to cytoplasmic ratio and peripheral palisading. 0 3:59 PM CDT DERMATOPATHOLOGY LABORATORY Disclaimer An external and internal positive and negative controls are appropriate for the histochemical, immunohistochemical and immunofluorescence stain(s) in this case (if any), except where stated explicitly. The performance characteristics of the stain(s) cited in this report were developed and its performance characteristic determined by the Dermatopathology Laboratory at [facility], directed by Dr. Jessica Vaughn. These tests need not be, and therefore are not, approved by the [place] Food and Drug Administration. The tests are used for clinical purposes. Billing Codes Specimen Charges Stain Charges 40719 1 0 3:59 PM CDT DERMATOPATHOLOGY LABORATORY Embedded Images 0 3:59 PM CDT DERMATOPATHOLOGY LABORATORY Pathology/Cytolog y TISSUE SPECIMEN FROM SKIN / Unknown 09/01/2020 09/02/2020 12:20 PM CDT us Nelson Goyal MD LAB - PATHOLOGY/CYTOLOGY ORD ERABLES Final Result DERMATOPATHOLOGY LABORATORY [facility] - Department of Dermatology [address], [address] [phone] documented in this encounter Visit Diagnoses Not on filedocumented in this encounter Care Teams Acetone Button Paster Relationship Specialty Start Date End Date Jose Lambert MD [address] [place] [address] [address] [place] [address] PCP - General 07/19/11 documented as of this encounter
--- OUTSIDE RECORDS SUMMARY | 2025-09-29 09:07 | XMS_ITS | Clinical Summary ---
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 ([facility]) 10/16/2016 Overview (02/23/2017): Coronary artery disease involving samish coronary artery of samish heart with other form of angina pectoris [...] Dyslipidemia 03/08/2021 11/17/2021 Statin intolerance 03/04/2019 3 Surgical History Surgery Date Site/Laterality Comments CHOLECYSTECTOMY [...] on file 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
--- OUTSIDE RECORDS SUMMARY | 2025-09-29 09:07 | XMS_ITS | Clinical Summary ---
Author Organization [facility] Address [address] [place] [address] Care Team Providers Care Traffic Court Referee Name Role Phone Unavailable Primary Care Provider Unavailabl e Allergies No known active allergies Medications oxyBUTYnin (DITROPAN XL) 10 mg Extended Release 24 hour tablet Take 1 Tablet (10 mg) by mouth daily. 90 Tablet 3 09/08/2024 2:59 PM CDT 02/07/2024 Active Encounters Date Type Department Care Team Description 09/16/2025 External Device Data [facility] ABSTRACTION Provider, Abstract 09/15/2025 External Device Data [facility] ABSTRACTION Provider, Abstract 09/08/2025 External Device Data [facility] ABSTRACTION Provider, Abstract 07/21/2025 External Device Data [facility] ABSTRACTION Provider, [...]
--- OUTSIDE RECORDS SUMMARY | 2025-09-29 09:07 | XMS_ITS | Encounter Summary ---
Author Organization [facility] Address [address] [place] [address] Care Team Providers Care Turkey Roll Maker Name Role Phone Jose Lambert MD Primary Care Provider [phone] Encounter Details Date Type Department Care Team (Late st Contact Info) Description 10/06/2020 Lab Requisition [facility] DermPath Lab [address] [place] [phone] Nelson Goyal MD [address] [place] [address] Social History Tobacco Use Types Packs/Day Years Used Date Smoking Tobacco: Former Cigarettes Q uit: 08/14/1969 Smokeless Tobacco: Never Alcohol Use Standard Drinks/Week Comments No 0 (1 standard drink = 0.6 oz pur e alcohol) Comments Unknown Sex and Gender Information Value Date Recorded Sex Assigned at Not on file 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 Gender Identity Not on file Sexual Orientation Not on file documented as of this encounter Plan of Treatment Not on file documented as of this encounter Procedures Procedure Name Priority Date/Time Associated Diagnosis Comments DERMATOPATHOLOGY Routine 10/05/2020 12:0 0 AM MONITORING SPECIALIST documented in this encounter Results * DERMATOPATHOLOGY (10/05/2020 12:00 AM MONITORING SPECIALIST) Case Report Dermatopathology Report Case: [id number] Authorizing Provider: Nelson Goyal MD Collected: 10/05/2020 12:00 AM Ordering Location: [facility] DermPath Lab Received: 10/06/2020 12:46 PM Pathologist: Ginny West MD Specimen: Skin, above right clavicle 0 4:23 PM [facility] DERMATOPATHOLOGY LABORATORY Final Diagnosis Specimen A. SKIN, above right clavicle: DERMAL SCAR RESIDUAL BASAL CELL CARCINOMA NOT IDENTIFIED (L90.5) 0 4:23 PM [facility] DERMATOPATHOLOGY LABORATORY at 1623 MONITORING SPECIALIST Clinical History Bx proven BCC. Previous Bx: [id number]. 0 4:23 PM [facility] DERMATOPATHOLOGY LABORATORY Gross Description Specimen A: Received is one formalin filled container labeled with the patient's name and designated above right clavicle. The specimen consists of a curettage and desiccation biopsy measuring [id number]. Jar 0. 0 4:23 PM [facility] DERMATOPATHOLOGY LABORATORY Microscopic Description Specimen A. SKIN, above right clavicle: There are fibroblasts and collagen bundles oriented parallel to the skin surface. There are elongated blood vessels, some of which are oriented perpendicular to the skin surface. No basal cell carcinoma is identified. 0 4:23 PM [facility] DERMATOPATHOLOGY LABORATORY Disclaimer An external and internal positive and negative controls are appropriate for the histochemical, immunohistochemical and immunofluorescence stain(s) in this case (if any), except where stated explicitly. The performance characteristics of the stain(s) cited in this report were developed and its performance characteristic determined by the Dermatopathology Laboratory at [facility], directed by Dr. Jessica Vaughn. These tests need not be, and therefore are not, approved by the [place] Food and Drug Administration. The tests are used for clinical purposes. Billing Codes Specimen Charges Stain Charges 37892 1 0 4:23 PM MONITORING SPECIALIST DERMATOPATHOLOGY LABORATORY Embedded Images 0 4:23 PM MONITORING SPECIALIST DERMATOPATHOLOGY LABORATORY Pathology/Cytolog y TISSUE SPECIMEN FROM SKIN / Unknown 10/05/2020 10/06/2020 12:46 PM MONITORING SPECIALIST us Nelson Goyal MD LAB - PATHOLOGY/CYTOLOGY ORD ERABLES Final Result DERMATOPATHOLOGY LABORATORY [facility] - Department of Dermatology [address] [phone] documented in this encounter Visit Diagnoses Not on filedocumented in this encounter Care Teams Turkey Roll Maker Relationship Specialty Start Date End Date Jose Lambert MD [address] [place] [address] [address] [place] [address] PCP - General 07/19/11 documented as of this encounter
[2025-09-29 09:45] VITALS: BP 148/61; PULSE 64; RESP 20; TEMP 36.1; O2SAT 99
[2025-09-29] MEDS: dexAMETHasone SOD PHOS INJ 10 MG/ML 1 ML VIAL IV PUSH (10:02)
[2025-09-29 10:07] VITALS: BP 156/72; PULSE 62; RESP 12; O2SAT 61
[2025-09-29 10:10] VITALS: BP 164/70; PULSE 61; RESP 12; O2SAT 99
[2025-09-29 10:16] VITALS: BP 158/69; PULSE 58; RESP 14; O2SAT 100
[2025-09-29 10:28] VITALS: BP 153/61; PULSE 51; RESP 16; O2SAT 100
== END 2025-09-29 10:52 | disposition home or self-care (01) ==
LOC: ASC 08:52
PROVIDERS: PCP Internal Medicine; Visit Provider Anesthesiology Pain Medicine
PROC: (CPT 64493; principal; 2025-09-29 09:50)
DX: M47.816 Spondylosis without myelopathy or radiculopathy, lumbar region (principal)
CPT/HCPCS: 64493 ×2; 64494 ×2; 64495 ×2; 99199

== ENCOUNTER 2025-10-06 11:51 | Day surgery (SDC) | payer MEDICARE, OTHER, SELFPAY ==
--- NOTE | ~2025-10-06 | XR_ITS ---
EXAM/PROCEDURE: XR fluoroscopy no charge HISTORY: DIAG PROG BILATERAL L3 L4 L5 COMPARISON: None available. Fluoroscopy time: 62.9 seconds Dose: 22.55 mgy IMPRESSION: Fluoroscopic guidance for pain management. No radiologist present for this procedure. See procedure/operative notes for complete evaluation. Reviewed, dictated and finalized at location A. OR SEAGRASS GATHERER IMPRESSION: Fluoroscopic guidance for pain management. No radiologist present for this proc edure. See procedure/operative notes for complete evaluation.
[2025-10-06 13:54] VITALS: BP 148/63; PULSE 50; RESP 18; TEMP 36.3; O2SAT 100; BMI 38.2
--- NOTE | 2025-10-06 14:19 | WPDHPUPDATE1 ---
History and Physical Update Update Date/Time: 10/06/25 14:19 History and Physical has been reviewed, including an updated exam of the patient. There are NO changes in the patient's condition. Risks, benefits, and alternatives have been discussed and questions answered. Patient agrees to proceed with procedure.
--- NOTE | 2025-10-06 14:20 | W.PM.PROC2 ---
Procedure Note - Detailed Date of Procedure 10/06/25 Pre-op Diagnosis Lumbosacral spondylosis, chronic low back pain Post-op Diagnosis Same Procedure Performed Diagnostic bilateral Lumbar Medial Branch/Dorsal Ramus Blocks at L3, L4, L5 Treating the bilateral L4-5, L5-S1 Facet Joints Under Fluoroscopic Guidance and with Contrast Control. (4 levels blocked). Surgeon Daljit Mosley MD Medical Office Professional Instructor None. Anesthesia Local Description of Procedure INFORMED CONSENT: Risks, benefits and alternatives to the procedure were discussed in detail with the patient who expressed explicit understanding and consent to proceed. Patient was informed verbally and in written form regarding the risks associated with the procedure including the low risk of serious infection, bleeding/bruising, allergic reaction, nerve or organ injury, paralysis, procedural site pain or discomfort, worsening pain and/or mobility, failure to treat and/or disfigurement. The patient expressed explicit understanding and consent to proceed. All materials required for the procedure were available prior to procedure start. Site and side were marked prior to procedure and confirmed in the presence of the patient. PROCEDURE IN DETAIL: The patient was brought to the procedural suite and placed in the prone position. Patient was made comfortable with use of pillows under the head/chest, hips and ankles. Skin overlying the injection site on the affected side(s) was prepared broadly with ChloraPrep applicator and draped in a sterile manner. Aseptic technique was used throughout. The endplates of the vertebral bodies at the site(s) of interest were aligned in the AP view. Ipsilateral oblique angulation was utilized to optimize visualization of the intersection between the superior articulating process and transverse process at each target site. Local anesthesia was established by infiltration with approximately 5 mL of 1% lidocaine via a 1-1/2 inch 27-gauge needle. A 25-gauge 3.5 inch Quincke spinal needle was advanced until the needle tip contacted periosteum at the target site, right L3. Lateral view was utilized to confirm the appropriate placement of the needle tip just anterior to the facet line and superior to the pedicle. In the Lateral view, 0.25 mL of Omnipaque 300 contrast medium was injected after negative aspiration for CSF, blood or other bodily fluid, showing appropriate extra-articular spread of contrast without evidence of intravascular, foraminal or intrathecal placement. A 0.5 mL solution of 2.0% PF lidocaine was injected after negative repeat aspiration. Appropriate spread of the injectate was confirmed with washout of previously injected contrast. No parasthesias were elicited. Needle was removed completely intact without difficulty. The same exact procedure was repeated for all remaining levels on the ipsilateral side, right L4, L5 medial branches/dorsal ramus, modified as necessary to accommodate for the new target location with identical findings and results and no evidence of complication. The same exact procedure was repeated for all remaining levels on the contralateral side, left L3, L4, L5 medial branches/dorsal ramus, modified as necessary to accommodate for the new target location with identical findings and results and no evidence of complication. Images were saved and documented in the patient chart. Patient's skin was cleaned and sterile bandage applied. The patient tolerated the procedure well. The patient was transported to the recovery area in stable condition where they were observed for an appropriate amount of time prior to discharge, without evidence of complication. Patient was instructed on the appropriate completion of a pain diary over the next 12-24 hours. The patient was instructed to avoid excessive activity for the next 48 hours, including climbing and frequent use of stairs. Showers only for 48 hours. They were instructed not to drive or operate heavy machinery for 24 hours. They are to monitor for severe headaches, fevers, chills, night sweats, erythema/swelling at the site or any other signs of infection, bleeding/bruising, bowel or bladder changes as well as new pain, weakness or numbness in the upper or lower extremity. Should they notice these changes, they are instructed to call our office immediately or report directly to the nearest Emergency Department if no answer or if after posted office hours. COMPLICATIONS: None COMMENTS: None CONTRAST WASTED: 28.5mL Omnipaque 300. Complications No immediate complications Condition Stable Disposition Same day [facility] Billing Surgery - Charge Forward: Surgery Billing
[2025-10-06 14:31] VITALS: BP 151/73; PULSE 55; RESP 15; O2SAT 96
[2025-10-06] MEDS: LIDOCAINE 1% PF INJ 5 ML VIAL INFILTRATE (14:34)
[2025-10-06 14:35] VITALS: BP 161/74; PULSE 59; RESP 11; O2SAT 98
[2025-10-06] MEDS: LIDOCAINE 2% PF LOCAL INJ 5 ML VIAL INFILTRATE (14:35)
[2025-10-06 14:46] VITALS: BP 147/77; PULSE 51; RESP 14; O2SAT 100
== END 2025-10-06 15:21 | disposition home or self-care (01) ==
PROVIDERS: PCP Internal Medicine; Visit Provider Anesthesiology Pain Medicine
PROC: (CPT 64493; principal; 2025-10-06 12:50)
DX: M47.817 Spondylosis without myelopathy or radiculopathy, lumbosacral region (principal)
CPT/HCPCS: 64493 ×2; 64494 ×2; 64495 ×2; 99199

== ENCOUNTER 2025-10-27 09:07 | Day surgery (SDC) | payer MEDICARE, OTHER, SELFPAY ==
--- NOTE | ~2025-10-27 | XR_ITS ---
EXAM/PROCEDURE: XR fluoroscopy no charge HISTORY: THERMAL RF ABLATION CLAIR L3,L4,L5 MEDIAL BRANCH/DORSAL RAMI COMPARISON: None available. TECHNIQUE: Fluoroscopic spot images for pain service. Fluoroscopy time: 115.7 seconds Dose: 69.01 mGy IMPRESSION: Fluoroscopic guided imaging. No radiologist present. See also procedure/operative notes for complete evaluation. Reviewed, dictated and finalized at location A. ET INSTALLER IMPRESSION: Fluoroscopic guided imaging. No radiologist present. See also proce dure/operative notes for complete evaluation.
--- NOTE | 2025-10-27 10:12 | WPDANESEPPF ---
Anes - Initial Pre Proc Eval Procedure: Operation Date: 10/27/25 11:50 Proposed Procedures p Thermal Radiofrequency Ablation Bilateral L3, L4, L5 Medial Branch/Dorsal Rami Supplying Bilateral L4-5, L5-S1 Facet Joints under Fluoroscopic Guidance - Daljit Mosley MD Date/Time: 10/27/25 10:12 Surgeon: Daljit Mosley MD Pre Op Diagnosis: Lumbar Spondylosis w/o Myelopathy or Radiculopathy Patient Data Age: 80 Gender: F Height: 1.57 m Weight: 94.347 kg Allergies Allergy/AdvReac Type Severity Reaction Status Date / Time Latex, Natural Rubber AdvReac Intermediate Rash Verified 10/19/25 14:49 Home Medications ?Medication ?Instructions ?Recorded ?Confirmed ?Type aspirin 81 mg tablet,delayed 81 mg PO HS 11/01/21 10/19/25 History release Held on 10/19/25. Instructions: .Provider Order atorvastatin 20 mg tablet 20 mg PO HS 11/01/21 10/19/25 History calcium carbonate (Calcium 600) 600 mg PO DAILY 11/01/21 10/19/25 History milk thistle 175 mg tablet 175 mg PO DAILY 11/01/21 10/19/25 History furosemide 20 mg tablet 20 mg PO QAM 05/29/23 10/19/25 History oxybutynin chloride 5 mg tablet 5 mg PO DAILY 05/29/23 10/19/25 History metoprolol succinate 25 mg capsule 50 mg PO BID 10/31/23 10/19/25 History sprinkle, ext. release 24 hr omeprazole 40 mg capsule,delayed 40 mg PO DAILY #90 caps 12/27/23 10/19/25 Rx release cholecalciferol (vitamin D3) 25 25 mcg PO DAILY 01/25/24 10/19/25 History mcg (1,000 unit) tablet ranolazine 500 mg tablet,extended 500 mg PO BID 01/25/24 10/19/25 History release,12 hr fluticasone propionate 50 2 spray intranasal DAILY chronic 12/10/24 10/19/25 Rx mcg/actuation nasal seasonal allergic rhinitis #18 mL spray,suspension (Flonase Allergy Relief) alendronate 70 mg tablet 70 mg PO WEEKLY 08/06/25 10/19/25 History Patient hx anesthesia problems: none Family hx anesthesia problems: none Results Review: All pre-operative results and documents have been reviewed as part of the pre-operative evaluation. [facility] Past Medical History Medical History Lumbar stenosis Lumbar spondylosis Compression fracture of L1 lumbar vertebra Dorsalgia Fatty liver Ventral hernia Constipation Liver lesion Liver cyst Belching Hyperplastic polyp of stomach Nonerosive esophageal reflux disease Early satiety Nausea Epigastric pain Hyperparathyroidism GERD (gastroesophageal reflux disease) HTN (hypertension) HLD (hyperlipidemia) ROBBIE (obstructive sleep apnea) Coronary artery disease Surgical History Surgical History H/O kyphoplasty H/O sinus surgery Hx of cholecystectomy History of hysterectomy Family History Family History Father Diabetes mellitus Mother Family history of multiple sclerosis Other Family history of congenital heart disease Family history of malignant neoplasm Social History Social History Social History: Caffeine-rarely Smoking packs per day: 1 Smoking cigarettes per day: 20.0 Years smoked: 3 Smoking pack-years: 3.00 Smoking status: Former smoker Tobacco type: cigarettes Second hand tobacco smoke exposure: Yes Smoking end date: 11/19/69 Alcohol intake: never Substance use: never Substance use type: does not use Lack of Transportation: No Lack of Food: Never True Current Housing: I Have Housing Concerned About Future Housing: No Difficulty Paying Gas/Electric Bills: No Difficulty Paying for Meds: No Currently Unemployed: No Education: High School Diploma/GED Difficulty w/ Childcare or Family Care: No Living arrangements: assisted living Spiritual care concerns: No Anes - Eval Final PreProcedure Day of Procedure 10/27/25 10:12 Patient weight: obese Heart: regular rate and rhythm Lungs: clear to auscultation Airway: Mallampati scale class II Neurological: alert and oriented Last oral intake: >/= 8 hours ASA classification: III Emergent: no Anesthetic plan: proceed Anesthesia type and monitoring: monitored anesthesia care Other findings: EKG reviewd with kirti left axis deviation Results Review: All pre-operative results and documents have been reviewed as part of the pre-operative evaluation. Informed Consent: The patient's anesthetic plan and its attendant risks and benefits were discussed with the patient/family/POA. Questions were solicited and answers provided to the satisfaction of the patient/family/POA.
--- NOTE | 2025-10-27 10:28 | WPDHPUPDATE1 ---
History and Physical Update Update Date/Time: 10/27/25 10:28 History and Physical has been reviewed, including an updated exam of the patient. There are NO changes in the patient's condition. Risks, benefits, and alternatives have been discussed and questions answered. Patient agrees to proceed with procedure.
[2025-10-27 10:29] VITALS: BP 169/64; PULSE 51; RESP 16; TEMP 36.7; O2SAT 100
--- NOTE | 2025-10-27 10:29 | W.PM.PROC2 ---
Procedure Note - Detailed Date of Procedure 10/27/25 Pre-op Diagnosis Lumbar Spondylosis w/o Myelopathy or Radiculopathy, chronic low back pain Post-op Diagnosis Same Procedure Performed Thermal Radiofrequency Ablation of the bilateral Lumbar Medial Branches/Dorsal Ramus at the L3, L4, L5 Levels Treating the bilateral L4-5, L5-S1 Facet Joints Under Fluoroscopic Guidance (4 Levels Treated). Surgeon Daljit Mosley MD Broker[employer] Purchase And Sale Clerk None. Anesthesia Local (w/ MAC) Description of Procedure INFORMED CONSENT: Risks, benefits and alternatives to the procedure were discussed in detail with the patient who expressed explicit understanding and consent to proceed. Patient was informed verbally and in written form regarding the risks associated with the procedure including the low risk of serious infection, bleeding/bruising, allergic reaction, nerve or organ injury, paralysis, procedural site pain or discomfort, worsening pain and/or mobility, failure to treat and/or disfigurement. The patient expressed explicit understanding and consent to proceed. All materials required for the procedure were available prior to procedure start. Site and side were marked prior to procedure and confirmed in the presence of the patient. PROCEDURE IN DETAIL: The patient was brought to the procedural suite and placed in the prone position. Patient was made comfortable with use of pillows under the head/chest, hips and ankles. ASA standard monitors were applied and used throughout the procedure. Skin overlying the injection site on the affected side(s) was prepared broadly with ChloraPrep applicator and draped in a sterile manner. Aseptic technique was used throughout. The endplates of the vertebral bodies at the site(s) of interest were aligned in the AP view. Ipsilateral oblique angulation was utilized to optimize visualization of the intersection between the superior articulating process and transverse process at each target site. Local anesthesia was established by infiltration with approximately 5 mL of 1% lidocaine via a 1-1/2 inch 27-gauge needle divided over each site treated. A 16-gauge 100mm ColorModulesian RF needle with curved 10mm active tip was advanced in the AP view until the needle tip contacted the periosteum at the target site, the right L3 medial branch. Lateral view was utilized to adjust and confirm the appropriate placement of the needle tip just anterior to the facet line, superior to the pedicle and posterior to the foramen. Grounding electrode was in place and functioning. The appropriately-sized RF cannula was inserted into the RF needle and motor stimulation was performed with no subjective or objective evidence of recruited muscle activity with stimulation up to 2.0 volts at a frequency of 2Hz. 1.5 mL of 2.0% PF lidocaine was injected after negative aspiration. After a 90s pause, lesioning was performed to 90 degrees centigrade for 90s ensuring lack of symptoms in the extremity throughout. Needle was rotated 180 degrees and lesioning repeated in a similar manner. Patient tolerated this well. No paresthesias were elicited. Needle was removed completely intact without difficulty. The same procedure was repeated for all intended levels/ structures on the ipsilateral side, right L4, L5 medial branch/dorsal ramus with identical methodology, modified to compensate for new location, with similar results and no evidence of complication. The same exact procedure was repeated for all remaining levels on the contralateral side, left L3, L4, L5 medial branches/dorsal ramus, modified as necessary to accommodate for the new target location with identical findings/results and no evidence of complication. Images were saved and documented in the patient chart. Patient's skin was cleansed and sterile bandage applied. The patient tolerated the procedure well. The patient was transported to the recovery area in stable condition where they were observed for an appropriate amount of time prior to discharge, without evidence of complication. The patient was instructed to avoid excessive activity for the next 48 hours, including climbing and frequent use of stairs. Showers only for 48 hours. They were instructed not to drive or operate heavy machinery for 24 hours. They are to monitor for severe headaches, fevers, chills, night sweats, erythema/swelling at the site or any other signs of infection, bleeding/bruising, bowel or bladder changes as well as new pain, weakness or numbness in the upper or lower extremity. Should they notice these changes, they are instructed to call our office immediately or report directly to the nearest Emergency Department if no answer or if after posted office hours. COMPLICATIONS: None COMMENTS: None Complications No immediate complications Condition Stable Disposition PACU [facility] Billing Surgery - Charge Forward: Surgery Billing
[2025-10-27] MEDS: LACTATED RINGERS 1,000 ML 30 ML IV CONT (11:02)
[2025-10-27] MEDS: BUPivacaine HCL 0.5% 10 ML AMP INFILTRATE (12:07)
[2025-10-27] MEDS: LIDOCAINE 2% PF LOCAL INJ 5 ML VIAL 10 ML INFILTRATE ×2 (12:08)
[2025-10-27 12:55] VITALS: BP 149/50; PULSE 51; RESP 15; O2SAT 98
--- NOTE | 2025-10-27 13:16 | SUR.PHASEII ---
1310- pt states she feels a nerve pain-shooting down right thigh- dr law notified
--- NOTE | 2025-10-27 13:48 | SUR.PHASEII ---
nerve pain shooting down right leg resolved prior to discharge
== END 2025-10-27 13:58 | disposition home or self-care (01) ==
PROVIDERS: PCP Internal Medicine; Visit Provider Anesthesiology Pain Medicine
PROC: (CPT 64635; principal; 2025-10-27 11:50)
DX: M47.816 Spondylosis without myelopathy or radiculopathy, lumbar region (principal)
CPT/HCPCS: 64635 ×2; 64636 ×6; 99199

== ENCOUNTER 2025-11-17 12:06 | Outpatient (CLI) | payer MEDICARE, OTHER, SELFPAY ==
--- NOTE | ~2025-11-17 | XR_ITS ---
XR knee RT min 4V 11/17/2025 12:30 Indication: Right knee pain and swelling Procedure: 4 views right knee Comparison: 07/29/2011 Findings: Interval progression of severe tricompartment osteoarthritis compared with prior study. No fracture, subluxation or dislocation. Osteopenia. No significant joint effusion. Impression: 1: Severe tricompartment osteoarthritis of the right knee. Reviewed, dictated and finalized at location O. SECURITY CONSULTANT Impression: 1: Severe tricompartment osteoarthritis of the right knee.
== END 2025-11-17 12:07 | disposition home or self-care (01) ==
LOC: GOSHIMG 12:06
PROVIDERS: PCP Internal Medicine; Visit Provider Nurse Practitioner Adult Health
DX: M17.11 Unilateral primary osteoarthritis, right knee (principal)
CPT/HCPCS: 73564